=== PATIENT | female | born 1940 | race Asian ===

== ENCOUNTER 2020-03-12 09:55 | Inpatient (IN) | payer MEDICAID, SELFPAY ==
[~2020-03-12] VITALS: Ht 149.9 cm; Wt 49.9 kg
--- NOTE | 2020-03-12 10:02 | NUR ---
Patient to ER bed 03 to gown for evaluation. Side rails up.
[2020-03-12 10:03] VITALS: BP_SYST 156
--- NOTE | 2020-03-12 10:08 | NUR ---
JOSE Damon at bedside examining patient.
--- NOTE | 2020-03-12 10:10 | NUR ---
pt arrives via ACLS d/t increasing abd pain 6/10, sharp, and N/v. Pt has hx of colon CA, a colostomy bag is present. engine monitor placed.
[2020-03-12] MEDS ORDERED: ONDANSETRON HCL 4 MG/2 ML VIAL IVP ONE (10:15)
[2020-03-12] MEDS ORDERED: MORPHINE 4 MG/ML INJ. SYRINGE IVP ONE (10:15)
[2020-03-12] MEDS ORDERED: NS 500 ML IV ONE (10:15)
--- NOTE | 2020-03-12 10:25 | NUR ---
medicateds the pt w/ Zofran, Morphine, and NS per MD order.
--- NOTE | 2020-03-12 10:29 | NUR ---
Patient transported to radiology via gurney, accompanied by staff.
--- NOTE | 2020-03-12 10:43 | NUR ---
pt returned from CT scan
[2020-03-12 10:50] LABS: BASOPHILS % (AUTO) 0.3 % (0.0-2.0); EOSINOPHILS # (AUTO) 0.2 K/uL (0.0-0.4); EOSINOPHILS % (AUTO) 5.2 % (0.0-4.0); HEMATOCRIT 34.2 % (36-48); HEMOGLOBIN 11.1 g/dL (12.0-16.0); LYMPHOCYTES # (AUTO) 0.4 K/uL (1.0-5.5); LYMPHOCYTES % (AUTO) 13.3 % (20.5-51.5); MEAN CORPUSCULAR HEMOGLOBIN 26 pg (27-31); MEAN CORPUSCULAR HGB CONC 33 % (32-36); MEAN CORPUSCULAR VOLUME 79 fL (79.0-98.0); MONOCYTES # (AUTO) 0.7 K/uL (0.0-1.0); MONOCYTES % (AUTO) 25.6 % (1.7-9.3); NEUTROPHILS # (AUTO) 1.6 K/uL (1.8-7.7); NEUTROPHILS % (AUTO) 55.6 % (40.0-70.0); PLATELET COUNT (AUTO) 237 K/uL (130-430); RED BLOOD CELL COUNT(AUTO) 4.35 MIL/uL (4.2-6.2); RED CELL DISTRIBUTION WIDTH 16.6 % (9.0-15.0); WHITE BLOOD COUNT (AUTO) 2.9 K/uL (4.8-10.8)
[2020-03-12 11:01] LABS: PROTHROMBIN TIME 10.1 SECS (9.5-12.5)
[2020-03-12 11:02] LABS: ANION GAP 13 (5-15); CALCIUM 9.5 mg/dL (8.4-11.0); CHLORIDE 99 mmol/L (98-107); CREATININE 0.96 mg/dL (0.55-1.30); GLUCOSE 103 mg/dL (70-99); SODIUM SERUM 140 mmol/L (136-145); UREA NITROGEN, BLOOD 22 mg/dL (8-21)
[2020-03-12 11:15] LABS: ALANINE AMINOTRANSFERASE 21 U/L (12-78); ALBUMIN 3.7 g/dL (3.4-4.8); ASPARTATE AMINOTRANSFERASE 38 U/L (10-37); TOTAL BILIRUBIN 0.7 mg/dL (0.0-1.0)
[2020-03-12 11:20] LABS: BILIRUBIN,URINE 1+ (NEGATIVE); BLOOD, URINE NEGATIVE (NEGATIVE); CLARITY/URINE CLEAR (CLEAR); COLOR,URINE YELLOW (YELLOW); GLUCOSE,URINE NEGATIVE (NEGATIVE); KETONES,URINE NEGATIVE (NEGATIVE); LEUKOCYTE ESTERASE ,URINE NEGATIVE (NEGATIVE); NITRITE, URINE NEGATIVE (NEGATIVE); PROTEIN URINE 1+ (NEGATIVE); UROBILINOGEN,URINE 0.2 (0.2-1.0)
--- NOTE | 2020-03-12 11:20 | NUR ---
16fr NG tube inserted to the left nares.
[2020-03-12 11:21] LABS: POTASSIUM 2.7 mmol/L (3.5-5.1)
[2020-03-12] MEDS ORDERED: KCL 40 mEq in 100 mL (PREMIX) 100 ML IV ONE (11:30)
[2020-03-12 11:43] LABS: PHOSPHORUS 3.3 mg/dL (2.7-4.5)
[2020-03-12] MEDS ORDERED: KCL 20 mEq in 100 mL (PREMIX) 100 ML IV ONE (11:46)
--- NOTE | 2020-03-12 13:06 | NUR ---
600 ml of gastric contain from NG tube
--- NOTE | 2020-03-12 14:20 | NUR ---
Covid swab collected and sent to the lab
[2020-03-12] MEDS ORDERED: NOR10 PO (14:24)
[2020-03-12] MEDS ORDERED: MULT-1117 PO (14:24)
--- NOTE | 2020-03-12 14:24 | NUR ---
Medication reconciliation completed with information provided by pt. Any prior medication reconciliation on file was reviewed and corrected. Pt does not remeber the name of the chemo med
[2020-03-12] MEDS ORDERED: MORPHINE 2 MG/ML INJ. SYRINGE IVP PRN (14:30)
--- NOTE | 2020-03-12 14:50 | NUR ---
Patient will be admitted to care of Dr. Wolff. Admitted to tele unit. Will go to room 107-a. Belongings list completed. Complete and up to date summary report printed. SBAR report to be given at bedside with opportunity for questions. IV is on the LFA 20g patent and infusing well. Bedside report to be given
[2020-03-12 15:40] VITALS: BP_SYST 148
[2020-03-12 16:00] VITALS: BP_SYST 148
[2020-03-12] MEDS ORDERED: CAPE500T PO (17:21)
[2020-03-12] MEDS ORDERED: PROC10TA13 PO (17:21)
[2020-03-12] MEDS ORDERED: ONDA4TAB5 PO (17:21)
[2020-03-12] MEDS: D5/0.45 NS 1,000 ML IV SCH (17:48)
--- NOTE | 2020-03-12 19:30 | NUR ---
CHANGE OF SHIFT: endorsed by nurse Shreya, admission today for bowel obstruction. no distress. call light within reach.
--- NOTE | 2020-03-12 20:30 | NUR ---
NOTES: pt. resting when checked, awake, alert and oriented. IVF infusing via left arm. denies any discomfort. kept NPO. with colostomy intact but no drainage, abdomen slight distended. moves all extremities. maintain bed rest. instructed to call for help, call light at bedside. Addendum: 03/12/20 at 2256 by Jeannette Rosas RN Late entry; 2029 pt. kept NPO, NGT intact and clamped.
[2020-03-12 21:00] VITALS: BP_SYST 130
--- NOTE | 2020-03-12 22:00 | NUR ---
NOTES: pt. dozing on and off. no complaints. asked to turn off lights. call light within reach.
--- NOTE | 2020-03-13 00:35 | NUR ---
NOTES: pt. awakened for VS. IVF continuous. NGT intact. repositioned. no complaints. pt. needs attended. call light within reach.
[2020-03-13 00:38] VITALS: BP_SYST 142
--- NOTE | 2020-03-13 01:00 | NUR ---
NOTES: asked tech to call Dr. Wolff about NGT if he wants it to connect to suction.
--- NOTE | 2020-03-13 01:15 | NUR ---
NOTES: pt. ambulated to restroom, stand by assist. complete linen changed done. NGT checked for patency. kept warm and comfortable.
--- NOTE | 2020-03-13 03:30 | NUR ---
NOTES: pt. sleeping, no complaints.
--- NOTE | 2020-03-13 04:32 | NUR ---
CONSULT REASON FOR CONSULT: BOWEL OBSTRUCTION PERSON I SPOKE WITH: NATHANIEL CONSULTING PHYSICIAN: DR. MOREIRA CONFERENCE SERVICES MANAGER PHYSICIAN: [phone] ORDERING PHYSICIAN: DR. SALAZAR Addendum: 03/13/20 at [address]/ CONFERENCE SERVICES MANAGER PHONE NUMBER: [phone]
--- NOTE | 2020-03-13 05:12 | NUR ---
NOTES: pt. condition unchanged, continue to monitor. Dr. Wolff did not return the call. will call again this am.
--- NOTE | 2020-03-13 06:00 | NUR ---
NOTES: called dr. yeboah back and return the call and ordered NGT to low intermittent suction, drained brownish liquid secretion/colostomy intact. pt. ambulated to restroom, oral care done.
[2020-03-13 06:22] LABS: BASOPHILS % (AUTO) 0.3 % (0.0-2.0); EOSINOPHILS # (AUTO) 0.3 K/uL (0.0-0.4); EOSINOPHILS % (AUTO) 9.5 % (0.0-4.0); HEMOGLOBIN 10.4 g/dL (12.0-16.0); LYMPHOCYTES # (AUTO) 0.5 K/uL (1.0-5.5); LYMPHOCYTES % (AUTO) 13.7 % (20.5-51.5); MEAN CORPUSCULAR HEMOGLOBIN 26 pg (27-31); MEAN CORPUSCULAR HGB CONC 33 % (32-36); MEAN CORPUSCULAR VOLUME 80 fL (79.0-98.0); MONOCYTES # (AUTO) 0.7 K/uL (0.0-1.0); MONOCYTES % (AUTO) 21.1 % (1.7-9.3); NEUTROPHILS # (AUTO) 1.9 K/uL (1.8-7.7); NEUTROPHILS % (AUTO) 55.4 % (40.0-70.0); PLATELET COUNT (AUTO) 222 K/uL (130-430); RED BLOOD CELL COUNT(AUTO) 3.98 MIL/uL (4.2-6.2); RED CELL DISTRIBUTION WIDTH 16.8 % (9.0-15.0); WHITE BLOOD COUNT (AUTO) 3.4 K/uL (4.8-10.8)
--- NOTE | 2020-03-13 06:45 | NUR ---
CLOSING NOTES; pt. resting. IVF patent and NGT to low intermittent suction. no complaints. for further care and assistance. kept NPO. Dr. Sanchez called last night and will see pt. today. call light within reach.
--- NOTE | 2020-03-13 07:00 | NUR ---
OPENING NOTE Assumed care from Jeannette ESTRADA manufacturing shift supervisor at 0700 am. Patient seen awake alert oriented. 0900: Vital signs stable. patient able to make needs known. Will continue care Addendum: 03/13/20 at 1521 by Luann Elias RN 1000: Ng.tube connected to low wall intermittent suction. Patient ambulating to bath without contract administrative assistant. Colostomy bag to left abd without output. Patient voiding well. 1400: GI series done at patient bedside. 1500: Patient ambulated to bathroom, IV patent and infusing. Ng.tube in place and draining brown/greenish output.Vitals stable.
[2020-03-13 07:12] LABS: ALANINE AMINOTRANSFERASE 25 U/L (12-78); ALBUMIN 3.2 g/dL (3.4-4.8); ANION GAP 6 (5-15); ASPARTATE AMINOTRANSFERASE 36 U/L (10-37); CALCIUM 8.4 mg/dL (8.4-11.0); CHLORIDE 101 mmol/L (98-107); CREATININE 0.99 mg/dL (0.55-1.30); GLUCOSE 106 mg/dL (70-99); SODIUM SERUM 137 mmol/L (136-145); TOTAL BILIRUBIN 0.7 mg/dL (0.0-1.0); UREA NITROGEN, BLOOD 16 mg/dL (8-21)
[2020-03-13 07:28] LABS: POTASSIUM 2.8 mmol/L (3.5-5.1)
[2020-03-13 08:58] VITALS: BP_SYST 141
[2020-03-13] MEDS: D5/0.45 NS 1,000 ML IV SCH (10:26)
[2020-03-13 11:47] VITALS: BP_SYST 149
[2020-03-13] MEDS ORDERED: GASTROGRAFIN 120 ML ONE (13:14)
--- NOTE | 2020-03-13 15:45 | NUR ---
CONSULTATION PAGED/CALLED Reason for Consultation: ABD PAIN Person Who was Notified: KOREY Consulting Physician: ASHOK WASHINGTON IS BILLET GRINDER Infrastructure Director Specialty: Ordering Physician: MARIE/ MAYUR WASHINGTON IS BILLET GRINDER
[2020-03-13 16:23] VITALS: BP_SYST 143
--- NOTE | 2020-03-13 18:52 | NUR ---
CLOSING NOTE Patient remain stable during this shift. Please see all nursing note. Addendum: 03/13/20 at 1854 by Luann Elias RN Assumed care from Jeannette ESTRADA manufacturing shift supervisor at 0700 am. Patient seen awake alert oriented. 0900: Vital signs stable. patient able to make needs known. Will continue care Addendum: 03/13/20 at 1521 by Luann Elias RN 1000: Ng.tube connected to low wall intermittent suction. Patient ambulating to bath without pediatric medical assistant. Colostomy bag to left abd without output. Patient voiding well. 1400: GI series done at patient bedside. 1500: Patient ambulated to bathroom, IV patent and infusing. Ng.tube in place and draining brown/greenish output.Vitals stable.
--- NOTE | 2020-03-13 19:30 | NUR ---
OPENING NOTE: RECEIVED SBAR REPORT FROM DAY SHIFT RN. PATIENT IS AWAKE, LAYING IN BED COMFORTABLY, BREATHING UNLABORED AND EVEN ON RA. NGT IS INTACT AND ON LOW INTERMITTENT SUCTION, DRAINING BROWNISH LIQUID, COLOSTOMY IS INTACT, CONTAINS SMALL AMOUNT OF BROWNISH LIQUID. IVF RUNNING AT 50 CC/HR. NO SIGN OF INFILTRATION NOTED. BED IS LOCKED IN LOWEST POSITION, OFFERED TO HAVE BED ALARM ON, PATIENT REFUSED, EDUCATED PATIENT TO USE CALL LIGHT WHEN NEEDS ASSISTANCE. PATIENT VERBALIZED UNDERSTANDING.WILL CONTINUE TO MONITOR.
[2020-03-13 20:00] VITALS: BP_SYST 103
--- NOTE | 2020-03-13 20:29 | NUR ---
SPOKE TO DR. SALAZAR: NOTIFIED HIM OF POTASSIUM LEVEL OF 2.8. NEW ORDERS RECEIVED.
[2020-03-13] MEDS ORDERED: POTASSIUM CHLORIDE 40 MEQ in NS 250 ML IV ONE (20:30)
[2020-03-13] MEDS ORDERED: KCL 20 mEq in 100 mL (PREMIX) 100 ML IV ONE (20:30)
--- NOTE | 2020-03-13 20:40 | NUR ---
HIGH ALERT NOTE: Called Dr. SALAZAR back at [phone] identified within the medical roster to verify physician authenticity OF POTASSIUM RIDER ORDER.
--- NOTE | 2020-03-13 21:22 | NUR ---
POTASSIUM RIDER 20 MEQ STARTED AT 50 ML/HR ORDERED, BUT PATIENT C/O BURNING AT THE SITE. RATE REDUCED TO 30 ML/HR AND TOLERATED BY PATIENT.
[2020-03-13] MEDS: KCL 20 mEq in 100 mL (PREMIX) 100 ML IV SCH ×2 (21:29→23:28)
--- NOTE | 2020-03-13 22:29 | NUR ---
POTASSIUM RIDER: POTASSIUM RIDER 20 MEQ STARTED AT 50 ML/HR ORDERED, BUT PATIENT C/O BURNING AT THE SITE. RATE REDUCED TO 40 ML/HR AND TOLERATED BY PATIENT. WILL CONTINUE PATIENT FOR ANY CHANGES.
[2020-03-14] VITALS: BP_SYST 143
[2020-03-14] MEDS: KCL 20 mEq in 100 mL (PREMIX) 100 ML IV SCH (02:42)
--- NOTE | 2020-03-14 02:42 | NUR ---
POTASSIUM RIDER: POTASSIUM RIDER 20 MEQ STARTED AT 50 ML/HR ORDERED. PATIENT C/O BURNING AT THE SITE, RATE REDUCED TO 40 ML/HR AND TOLERATED BY PATIENT. EMPTIED CANISTER, NEW CANISTER PLACED. NO S/S RESPIRATORY DISTRESS NOTED AT THIS TIME. SAFETY AND FALL PRECAUTIONS ARE IN PLACE, CALL LIGHT IS WITHIN PATIENT REACH. WILL CONTINUE TO MONITOR.
[2020-03-14 04:00] VITALS: BP_SYST 140
--- NOTE | 2020-03-14 04:15 | NUR ---
RN ROUNDS: PATIENT IS SLEEPING, BREATHING EVEN AND UNLABORED. IVF RUNNING ORDERED RATE. NO S/S ACUTE DISTRESS NOTED AT THIS TIME. NG SUCTION ON LOW INTERMITTENT. CANISTER CONTAINS BROWNISH DRAINAGE. BED LOCKED IN LOWEST POSITION, CALL LIGHT IS WITH PATIENT. WILL MONITOR PATIENT FOR ANY CHANGES.
--- NOTE | 2020-03-14 06:41 | NUR ---
CLOSING NOTE: PATIENT IS RESTING COMFORTABLY, K-RIDER AND IVF RUNNING ORDERED RATE. NO SIGNS OF INFILTRATION. RESPIRATION IS EVEN AND UNLABORED. NO S/S ACUTE DISTRESS NOTED AT THIS TIME. BED LOCKED IN LOWEST POSITION, CALL LIGHT WITHIN PATIENT REACH. SAFETY AND FALL PRECAUTIONS MAINTAINED. WILL ENDORSE PATIENT CARE TO DAY SHIFT RN.
[2020-03-14] MEDS: D5/0.45 NS 1,000 ML IV SCH (06:58)
--- NOTE | 2020-03-14 07:00 | NUR ---
OPENING NOTE Assumed care from Tigist ESTRADA production supervisor off shift at 0700 am. Patient alert awake oriented. Ng-tube to LIS. Colostomy bag intact. 0900: Patient vital signs stable. Patient denies trouble breathing or chest pain at this time. Will continue care. Addendum: 03/14/20 at 1655 by Luann Elias RN 1100: Patient electrolytes improved. K 3.7. Patient ambulating. IV patent and infusing. 1300: Patient vitals remain stable at this time. 1500: No major changes noted. Will continue to monitor patient closely 1630: Patient vital signs WNL. GI doctor rounded and discussed plan to start clear liquid on 03/15 if patient Ng output minimizes.Will endorse to oncoming team
--- NOTE | 2020-03-14 07:10 | NUR ---
COLOSTOMY CARE: COLOSTOMY CARE PROVIDED. OLD COLOSTOMY BAG WAS CHANGED. SITE WAS CLEANSED WITH WARM TAP WATER AND PAT DRIED PRIOR TO APPLYING A NEW BAG. STOMA NOTED TO BE PINKISH. PT TOLERATED COLOSTOMY CARE WELL. WILL ENDORSE TO DAY SHIFT NURSE.
[2020-03-14 07:34] LABS: BASOPHILS % (AUTO) 0.4 % (0.0-2.0); EOSINOPHILS # (AUTO) 0.2 K/uL (0.0-0.4); EOSINOPHILS % (AUTO) 3.2 % (0.0-4.0); HEMATOCRIT 33.4 % (36-48); HEMOGLOBIN 10.8 g/dL (12.0-16.0); LYMPHOCYTES # (AUTO) 0.5 K/uL (1.0-5.5); LYMPHOCYTES % (AUTO) 7.4 % (20.5-51.5); MEAN CORPUSCULAR HEMOGLOBIN 26 pg (27-31); MEAN CORPUSCULAR HGB CONC 32 % (32-36); MEAN CORPUSCULAR VOLUME 80 fL (79.0-98.0); MONOCYTES % (AUTO) 15.3 % (1.7-9.3); NEUTROPHILS # (AUTO) 4.7 K/uL (1.8-7.7); NEUTROPHILS % (AUTO) 73.7 % (40.0-70.0); PLATELET COUNT (AUTO) 240 K/uL (130-430); RED BLOOD CELL COUNT(AUTO) 4.17 MIL/uL (4.2-6.2); RED CELL DISTRIBUTION WIDTH 17.5 % (9.0-15.0); WHITE BLOOD COUNT (AUTO) 6.4 K/uL (4.8-10.8)
[2020-03-14 07:45] LABS: ANION GAP 6 (5-15); CALCIUM 8.8 mg/dL (8.4-11.0); CHLORIDE 105 mmol/L (98-107); CREATININE 0.82 mg/dL (0.55-1.30); GLUCOSE 107 mg/dL (70-99); POTASSIUM 3.7 mmol/L (3.5-5.1); SODIUM SERUM 145 mmol/L (136-145); UREA NITROGEN, BLOOD 13 mg/dL (8-21)
[2020-03-14 07:49] VITALS: BP_SYST 140
[2020-03-14 11:28] VITALS: BP_SYST 145
[2020-03-14 15:43] VITALS: BP_SYST 119
--- NOTE | 2020-03-14 17:45 | NUR ---
CLOSING NOTE Patient remain stable during this shift. GI consulted 03/14. Electrolyte improved. Vitals stable. Patient ambulating. Ng-tube to LIS. Colostomy intact with minimal output. Good urine output. Please see all nursing shift notes. Addendum: 03/14/20 at 1750 by Luann Elias RN Assumed care from Tigist ESTRADA shift superintendent caustic cresylate at 0700 am. Patient alert awake oriented. Ng-tube to LIS. Colostomy bag intact. 0900: Patient vital signs stable. Patient denies trouble breathing or chest pain at this time. Will continue care. Addendum: 03/14/20 at 1655 by Luann Elias RN 1100: Patient electrolytes improved. K 3.7. Patient ambulating. IV patent and infusing. 1300: Patient vitals remain stable at this time. 1500: No major changes noted. Will continue to monitor patient closely 1630: Patient vital signs WNL. GI doctor rounded and discussed plan to start clear liquid on 03/15 if patient Ng output minimizes.Will endorse to oncoming team
--- NOTE | 2020-03-14 19:20 | NUR ---
OPENING NOTE: RECEIVED SBAR REPORT FROM DAY SHIFT RN. PATIENT IS AWAKE, LAYING IN BED COMFORTABLY, BREATHING UNLABORED AND EVEN ON RA. NGT IS INTACT AND ON LOW INTERMITTENT SUCTION, DRAINING BROWNISH LIQUID, COLOSTOMY IS INTACT, CONTAINS SMALL AMOUNT OF BROWNISH LIQUID STOOL. IVF RUNNING AT 50 CC/HR. NO SIGN OF INFILTRATION NOTED. BED IS LOCKED IN LOWEST POSITION, OFFERED TO HAVE BED ALARM ON, PATIENT REFUSED, EDUCATED PATIENT TO USE CALL LIGHT WHEN NEEDS ASSISTANCE. PATIENT VERBALIZED UNDERSTANDING.WILL CONTINUE TO MONITOR.
[2020-03-14 20:00] VITALS: BP_SYST 152
--- NOTE | 2020-03-14 22:00 | NUR ---
COLOSTOMY CARE: COLOSTOMY BAG EMPTIED AND CLEANED UP. STOMA NOTED TO BE PINKISH. PT TOLERATED COLOSTOMY CARE WELL.
--- NOTE | 2020-03-15 | NUR ---
RN NOTE: PATIENT IS SLEEPING, BREATHING UNLABORED AND EVEN ON RA. NGT IS INTACT AND ON LOW INTERMITTENT SUCTION, CANISTER CONTAINS BROWNISH LIQUID, COLOSTOMY IS INTACT, CONTAINS SMALL AMOUNT OF BROWNISH LIQUID STOOL. IVF RUNNING AT 50 CC/HR. NO SIGN OF INFILTRATION NOTED. BED IS LOCKED IN LOWEST POSITION. WILL CONTINUE TO MONITOR.
[2020-03-15 00:10] VITALS: BP_SYST 154
--- NOTE | 2020-03-15 02:00 | NUR ---
RN NOTE: PATIENT IS SLEEPING. BREATHING UNLABORED AND EVEN ON RA. NGT IS INTACT AND ON LOW INTERMITTENT SUCTION, SUCTIONING BROWNISH LIQUID, COLOSTOMY IS INTACT, CONTAINS SMALL AMOUNT OF BROWNISH LIQUID STOOL. IVF RUNNING AT 50 CC/HR. NO SIGN OF INFILTRATION NOTED. BED IS LOCKED IN LOWEST POSITION, CALL LIGHT IS WITH PATIENT. WILL CONTINUE TO MONITOR.
--- NOTE | 2020-03-15 04:10 | NUR ---
RN NOTE: PATIENT IS AWAKE, REQUESTING BED BATH. NO S/S ACUTE DISTRESS NOTED AT THIS TIME. IVF RUNNING ORDERED RATE. NGT INTACT, COLOSTOMY IS INTACT, CONTAINING SMALL AMOUNT OF BROWNISH LIQUID. BED LOCKED AND IS IN LOWEST POSITION, CALL LIGHT IS WITH PATIENT. WILL CONTINUE TO MONITOR.
[2020-03-15] MEDS: D5/0.45 NS 1,000 ML IV SCH (06:41)
--- NOTE | 2020-03-15 06:47 | NUR ---
CLOSING NOTE: PATIENT IS RESTING COMFORTABLY, IV SITE SWOLLEN. ANGIOCATH WAS REMOVED INTACT AND PRESSURE DRESSING APPLIED TO THE SITE. NEW IV LINE RESTARTED ON RIGHT HAND WRIST. FLUSH WELL. RESPIRATION IS EVEN AND UNLABORED. NO S/S ACUTE DISTRESS NOTED AT THIS TIME. BED LOCKED IN LOWEST POSITION, CALL LIGHT WITHIN PATIENT REACH. SAFETY AND FALL PRECAUTIONS MAINTAINED. WILL ENDORSE PATIENT CARE TO DAY SHIFT RN.
--- NOTE | 2020-03-15 07:35 | NUR ---
AM ROUNDS: PATIENT AWAKE DURING ROUNDS. BEDSIDE REPORT RECEIVED FROM NIGHT NURSE CHILANGO/MARICRUZ. WITH LEFT NARES NG TUBE CONNECTED TO LIS,WITH COLOSTOMY AT LEFT QUADRANT AREA,DRAINING TO LIGHT BROWN SECRETIONS.CALL LIGHT WITH IN REACH. BED LOCKED AT LOWEST POSITION. NO ACUTE DISTRESS.
[2020-03-15 08:57] VITALS: BP_SYST 145
--- NOTE | 2020-03-15 09:11 | NUR ---
SURGEON ROUNDS: DR MOREIRA IN THE ROOM AND SPOKE TO PATIENT ,UPDATES GIVEN AND INTERPRETED IN TAGALOG ,UNDERSTANDS TEACHINGS GIVEN. WITH ORDERS FOR X-RAY ABDOMEN 2 VIEWS. PER SCHOOL PSYCHOLOGY SPECIALIST ANA,UPRIGHT TAKEN THIS MORNING,NEED ONLY 1 VIEW.
--- NOTE | 2020-03-15 12:09 | NUR ---
X-RAY ABDOMEN RESULTS: SPOKE WITH DR Halima MOREIRA RELAYED X-RAY ABDOMEN RESULTS AND WITH ORDERS REPEAT X-RAY ABDOMEN 2 VIEWS IN AM.
[2020-03-15 12:34] VITALS: BP_SYST 144
--- NOTE | 2020-03-15 13:56 | NUR ---
Dietitian Recommendations *Continue NPO as ordered. *Recommend: diet advancement (Clear liquid diet) within 24 hrs OR... *Recommend: initiate nutrition support if PO is not feasible. (PPN) Please see Nutritional Assessment for details. TAPAN LOW
--- NOTE | 2020-03-15 14:35 | NUR ---
RN ROUNDS: RESTING. NO PROBLEM.
[2020-03-15 15:51] VITALS: BP_SYST 141
--- NOTE | 2020-03-15 16:00 | NUR ---
BSC: TO BSC ,VOIDED.
--- NOTE | 2020-03-15 18:37 | NUR ---
CLOSING NOTES: PATIENT SLEEPING DURING ROUNDS. LEFT NARES NG TUBE TO LIS,DRAINING TO LARGE AMOUNT OF BROWNISH COLOR. LEFT QUADRANT COLOSTOMY INTACT.MINIMAL AMOUNT OF GREENISH COLOR LOOSE STOOLS.IV FLUIDS RUNNING AT RIGHT WRIST INTACT. CALL LIGHT WITH IN REACH. BED LOCKED AT LOWEST POSITION.NO DISTRESS.
--- NOTE | 2020-03-15 19:25 | NUR ---
Opening Note Received patient resting in bed, awake, AOx4, no distress and nonlabored breathing on room air and presently denies pain. IVF infusing via IV to Rt wrist. She has NGT to left nares and it is on LIS and canister has fluid at 900ml. Bed is locked in lowest position, and bed alarm on. Bedside commode is next to bed. She was instructed on use of call light and verbalized understanding. Reviewed plan of care and updated board.
[2020-03-15 20:00] VITALS: BP_SYST 143
--- NOTE | 2020-03-15 22:31 | NUR ---
rounds Patient resting w/eyes closed and momentarily awoke. No needs at this time and call light is w/in reach.
[2020-03-16] MEDS: D5/0.45 NS 1,000 ML IV SCH ×2 (00:06→23:10)
--- NOTE | 2020-03-16 00:06 | NUR ---
V/S, IVF V/S taken and stable, denies pain. Hung new bag of IVF D51/2 NS and infusing as ordered at 50 ml/hr, tolerating, no infiltration noted.
[2020-03-16 00:10] VITALS: BP_SYST 134
--- NOTE | 2020-03-16 02:01 | NUR ---
rounds, sleeping Patient is resting w/ eyes closed, non labored breathing. IVF infusing well. NGT is connected to LIS. Safety precautions in place and call light w/in reach.
--- NOTE | 2020-03-16 05:10 | NUR ---
lab draw entry level lab technician in for blood draw, patient tolerated.
[2020-03-16 06:33] LABS: BASOPHILS % (AUTO) 0.7 % (0.0-2.0); EOSINOPHILS # (AUTO) 0.4 K/uL (0.0-0.4); EOSINOPHILS % (AUTO) 6.4 % (0.0-4.0); HEMATOCRIT 31.4 % (36-48); HEMOGLOBIN 10.2 g/dL (12.0-16.0); LYMPHOCYTES # (AUTO) 0.5 K/uL (1.0-5.5); LYMPHOCYTES % (AUTO) 8.3 % (20.5-51.5); MEAN CORPUSCULAR HEMOGLOBIN 26 pg (27-31); MEAN CORPUSCULAR HGB CONC 32 % (32-36); MEAN CORPUSCULAR VOLUME 81 fL (79.0-98.0); MONOCYTES # (AUTO) 0.8 K/uL (0.0-1.0); MONOCYTES % (AUTO) 14.8 % (1.7-9.3); NEUTROPHILS # (AUTO) 3.8 K/uL (1.8-7.7); NEUTROPHILS % (AUTO) 69.8 % (40.0-70.0); PLATELET COUNT (AUTO) 228 K/uL (130-430); RED BLOOD CELL COUNT(AUTO) 3.89 MIL/uL (4.2-6.2); RED CELL DISTRIBUTION WIDTH 17.9 % (9.0-15.0); WHITE BLOOD COUNT (AUTO) 5.5 K/uL (4.8-10.8)
[2020-03-16 07:28] LABS: ANION GAP 5 (5-15); CHLORIDE 105 mmol/L (98-107); CREATININE 0.66 mg/dL (0.55-1.30); GLUCOSE 103 mg/dL (70-99); SODIUM SERUM 146 mmol/L (136-145); UREA NITROGEN, BLOOD 12 mg/dL (8-21)
[2020-03-16 07:51] LABS: POTASSIUM 2.5 mmol/L (3.5-5.1)
--- NOTE | 2020-03-16 08:00 | NUR ---
AM ROUNDS: PATIENT IN BED.IV FLUIDS RUNNING AT 50CC/H AT RIGHT WRIST INTACT. LEFT NARES NG TUBE CONNECTED TO LIS,BROWN COLOR DISCHARGES. LEFT QUADRANT AREA COLOSTOMY BAG INTACT. CALL LIGHT WITH IN REACH, BED LOCKED AT LOWEST POSITION. NO DISTRESS.
[2020-03-16 08:10] VITALS: BP_SYST 150
--- NOTE | 2020-03-16 08:58 | NUR ---
HIGH ALERT NOTE: Called Dr. Wolff back at [phone] identified within the medical roster to verify physician authenticity.
--- NOTE | 2020-03-16 08:59 | NUR ---
New Order: k-rider 80meq iv pb x1 and do add on magnesium level by Dr Wolff. High alert medications noted.
[2020-03-16] MEDS: POTASSIUM CHLORIDE 40 MEQ in NS 250 ML IV SCH ×2 (10:15→15:02)
--- NOTE | 2020-03-16 10:20 | NUR ---
K-rider 40meq ivpb: Started K-rider 40meq in 250ml saline first bag given as ordered. With no problem.
--- NOTE | 2020-03-16 11:45 | NUR ---
RN ROUNDS: PATIENT LYING IN BED COMFORTABLY. K-RIDER RUNNING WELL. NO ACUTE DISTRESS.
[2020-03-16 11:52] VITALS: BP_SYST 121
[2020-03-16 11:56] VITALS: BP_SYST 138
--- NOTE | 2020-03-16 13:20 | NUR ---
RN ROUNDS: STABLE. NO DISTRESS.
--- NOTE | 2020-03-16 14:30 | NUR ---
K-RIDER #2: SECOND BAG OF K-RIDER 40MEQ IVPB GIVEN ORDERED. ON GOING ,NO PROBLEM.
--- NOTE | 2020-03-16 16:10 | NUR ---
RN ROUNDS: RESTING. NOT ANY DISTRESS.
[2020-03-16 16:28] VITALS: BP_SYST 143
--- NOTE | 2020-03-16 17:15 | NUR ---
MD ROUNDS: DR SALAZAR IN PATIENT'S ROOM. NO NEW ORDERS MADE.
--- NOTE | 2020-03-16 18:12 | NUR ---
CLOSING NOTES: PATIENT IN BED.K-RIDER RUNNING WELL. NG TUBE AT LEFT NARES TO LIS,LARGE AMOUNT OF LIGHT BROWN GASTRIC SECRETIONS,MEASURED OUTPUT AND RECORDED.EMPTIED COLOSTOMY BAG AND RECORDED WELL. CALL LIGHT WITH IN REACH. BED LOCKED AT LOWEST POSITION.CONDITION GUARDED.
--- NOTE | 2020-03-16 19:30 | NUR ---
Opening Note Received patient resting in bed, awake, AOx4, no distress and nonlabored breathing on room air and presently denies pain or nausea. IVF and K-rider infusing via IV to Rt wrist and she is tolerating. She has NGT to left nares and it is on LIS. Bed is locked in lowest position, and patient refused bed alarm on and adds that she will call the light for help. She demonstrates use of call light and has steady gait. Bedside commode is next to bed. She was instructed on use of call light and verbalized understanding. Reviewed plan of care and updated board.
[2020-03-16 20:00] VITALS: BP_SYST 143
--- NOTE | 2020-03-16 22:45 | NUR ---
k-rider complete K-rider is complete, patient tolerated.
--- NOTE | 2020-03-16 23:10 | NUR ---
IVF Hung new bag of IVF D51/2 NS and infusing as ordered at 50 ml/hr also replaced primary line tubing and dated. Infusing well and tolerating, no s/sx of infiltration.
[2020-03-17] VITALS: BP_SYST 140
--- NOTE | 2020-03-17 00:10 | NUR ---
Rounds Patient resting, no s/sx of distress. VSS. IVF infusing well and NGT on LIS. Call light w/ in reach.
--- NOTE | 2020-03-17 02:32 | NUR ---
Resting Patient is resting w/ eyes closed. Symmetrical rise and fall of chest, non labored breathing noted. Safety precautions maintained.
--- NOTE | 2020-03-17 04:10 | NUR ---
rounds, awake Patient is resting in bed, she is awake and reports she is ok and has no further needs. No s/sx of distress, non labored breathing noted. Safety precautions maintained.
--- NOTE | 2020-03-17 07:04 | NUR ---
Closing note Patient is awake resting in comfortable position, no s/sx of distress and non labored breathing. IVF infusing well. Emptied 10 ml of loose brwon contents from colostomy and measured 450 ml output from NGT. Safety and aspiration precautions maintained. Needs met throughout shift, will endorse care to day shift nurse.
[2020-03-17 08:00] VITALS: BP_SYST 140
--- NOTE | 2020-03-17 08:00 | NUR ---
Opening Notes Patient is awake, alert and oriented x4. No resp distress noted. Breathing is even and unlabored. Patient denies any pain at this time. Patient remains NPO at this time. Denies any NVD, cough or abnormal bleeding. IV site on right wrist, 22 gauge intact, flushing well at this time. No infiltration or irritation noted. D5 1/2 NS @ 50 cc/hr, infusing well at this time. Patient is ambulatory, steady gait. Patient is noted with an NGTUBE, on low intermittent suction. Will monitor output throughout shift. All needs met at this time. Safety and fall precautions in place. Call light within reach. Bed in lowest position, locked. Will continue to monitor.
--- NOTE | 2020-03-17 10:15 | NUR ---
Notes Patient is awake, alert and oriented x4. No resp distress noted. Breathing is even and unlabored. Patient remains on low intermittent suction for NGTUBE. Remains NPO at this time. Patient denies any pain, NVD at this time. Nurse assisted patient to use the restroom, steady gait. All needs met at this time, Will continue to monitor.
--- NOTE | 2020-03-17 12:35 | NUR ---
Notes Patient remains NPO at this time. No resp distress noted. Breathing is even and unlabored. Denies any pain at this time. No needs at this time. Will continue to monitor.
[2020-03-17 13:01] VITALS: BP_SYST 148
--- NOTE | 2020-03-17 14:00 | NUR ---
Notes Patient is sleeping in bed at this time. No resp distress noted. Breathing is even and unlabored. Denies any pain at this time. Pt remains on low intermittent suction, still draining at this time. No needs at this time. Will continue to monitor.
--- NOTE | 2020-03-17 15:20 | NUR ---
Dietitian Note Pt has been NPO x 5 days, since admission on 03/12. RD reviewed EMR. Per bed huddle discussion earlier, pt s/ SBO d/t air-filled colon. KUB done and air has since been released. Pt now has hernia developing around the colostomy bag. RD s/w RN Luisana who reported that pt continues w/ high NGT output. And pt is a/w advancement of diet once NGT output volume is less. RD discussed possible initiation of nutrition support. RN to relay message to Dr. Wolff. RD to follow per nutrition care standards. DEVANTE, RD
[2020-03-17 16:00] VITALS: BP_SYST 160
[2020-03-17] MEDS: D5/0.45 NS 1,000 ML IV SCH (17:33)
--- NOTE | 2020-03-17 18:00 | NUR ---
Patient is being seen and examined by DR. MOREIRA
--- NOTE | 2020-03-17 18:19 | NUR ---
CLAMP NGTUBE/CLEAR LIQUID DIET Obtained new orders to clamp NGTUBE and place patient on clear liquid diet. Noted and carried out.
--- NOTE | 2020-03-17 18:35 | NUR ---
Closing Notes Patient is awake, alert and oriented x4. No resp distress noted. Breathing is even and unlabored. Denies any pain at this time. NGTube in left nare, clamped at this time. Switched out canisters. Drainage is noted a clear brown color. IV site on left wrist, 22 gauge intact, D5 1/2 NS @ 50 cc/hr infusing well at this time. Emptied out patients colostomy bag, 10 cc loose stool emptied out. Patient is now on an CLEAR LIQUID DIET. All needs met at this time. Safety and fall precautions in place. Call light within reach. Bed in lowest position, locked. Will continue to monitor.
--- NOTE | 2020-03-17 19:35 | NUR ---
Opening Note Received patient resting in bed, awake, AOx4, no distress and nonlabored breathing on room air and presently denies pain or nausea. IVF infusing via IV to Rt wrist. She has NGT to left nares which is clamped. She requested apple juice, it was provided and will f/u on tolerance. Bed is locked in lowest position, and patient refused bed alarm on and adds that she will call the light for help. She demonstrates use of call light and has steady gait. Bedside commode is next to bed. She was instructed on use of call light and verbalized understanding. Reviewed plan of care and updated board.
[2020-03-17 20:00] VITALS: BP_SYST 130
--- NOTE | 2020-03-17 20:33 | NUR ---
apple juice Patient drank 1 cup of apple juice and reports she feels good, no symptoms, tolerated.
--- NOTE | 2020-03-17 22:20 | NUR ---
Resting Patient is resting w/ eyes closed easy to arouse. She is comfortable and reports no pain or nause. She voided in BSC.
[2020-03-18 00:35] VITALS: BP_SYST 139
--- NOTE | 2020-03-18 00:35 | NUR ---
V/S, rounds V/S taken and stable, denies pain. IVF infusing well, will continue to monitor. Call light w/in reach.
--- NOTE | 2020-03-18 02:18 | NUR ---
OOB Patient OOB for use of BSC, bed linen was changed. She returned to bed, call light w/in reach.
--- NOTE | 2020-03-18 04:07 | NUR ---
c/o abdominal pain Patient awake and called to report severe abdominal pain, presently no nausea. Morphine 2mg given for severe pain, will continue to monitor.
--- NOTE | 2020-03-18 04:31 | NUR ---
Resting Patient resting w/ eyes closed. momentarily awakened and she reports no pain. She was repositioned, pulled up in bed
--- NOTE | 2020-03-18 07:05 | NUR ---
Closing note Patient is awake resting in comfortable position, no s/sx of distress and non labored breathing. IVF infusing well. Emptied 5 ml of loose brown contents from colostomy. Presently denies pain or nausea. Safety and aspiration precautions maintained. Needs met throughout shift, will endorse care to day shift nurse.
[2020-03-18 08:00] VITALS: BP_SYST 152
--- NOTE | 2020-03-18 08:00 | NUR ---
Opening Notes Patient is awake, alert and oriented x4. No resp distress noted. Breathing is even and unlabored. Patient denies any pain at this time. Patient remains NPO at this time. Denies any NVD, cough or abnormal bleeding. IV site on right wrist, 22 gauge intact, flushing well at this time. No infiltration or irritation noted. D5 1/2 NS @ 50 cc/hr, infusing well at this time. Patient is ambulatory, steady gait. Patient is noted with an NGTUBE, clamped at this time. Patient remains on a clear liquid diet, no nausea reported. All needs met at this time. Safety and fall precautions in place. Call light within reach. Bed in lowest position, locked. Will continue to monitor.
[2020-03-18] MEDS: D5/0.45 NS 1,000 ML IV SCH (09:41)
--- NOTE | 2020-03-18 10:15 | NUR ---
Notes Patient is sleeping in bed at this time. No resp distress noted. Breathing is even and unlabored. No signs of pain at this time. Will continue to monitor.
--- NOTE | 2020-03-18 12:15 | NUR ---
Notes Patient is asleep in bed at this time. No resp distress noted. Breathing is even and unlabored. Patient is c/o discomfort at NG TUBE site. Asking if we can possibly remove the NGTUBE, as in its hard for her to eat with it on. Paged Dr. Sanchez. Awaiting callback. Will continue to monitor.
[2020-03-18 12:21] VITALS: BP_SYST 148
--- NOTE | 2020-03-18 13:30 | NUR ---
DISCONTINUED NG TUBE DC NG TUBE on left nare. Patient tolerated NG TUBE removal well. Denies any pain. No signs of redness, bleeding or trauma to left nare. Patient denies any nausea at this time. Will continue to monitor.
--- NOTE | 2020-03-18 14:27 | NUR ---
Notes Patient is sitting up in bed, watching TV. No resp distress noted. Breathing is even and unlabored. No c/o pain at nares site. No needs at this time. Will continue to monitor.
[2020-03-18 15:07] LABS: BASOPHILS % (AUTO) 0.4 % (0.0-2.0); EOSINOPHILS # (AUTO) 0.2 K/uL (0.0-0.4); EOSINOPHILS % (AUTO) 2.5 % (0.0-4.0); HEMATOCRIT 35.7 % (36-48); HEMOGLOBIN 11.4 g/dL (12.0-16.0); LYMPHOCYTES # (AUTO) 0.4 K/uL (1.0-5.5); MEAN CORPUSCULAR HEMOGLOBIN 26 pg (27-31); MEAN CORPUSCULAR HGB CONC 32 % (32-36); MEAN CORPUSCULAR VOLUME 80 fL (79.0-98.0); MONOCYTES % (AUTO) 12.5 % (1.7-9.3); NEUTROPHILS # (AUTO) 6.4 K/uL (1.8-7.7); NEUTROPHILS % (AUTO) 79.6 % (40.0-70.0); PLATELET COUNT (AUTO) 257 K/uL (130-430); RED BLOOD CELL COUNT(AUTO) 4.44 MIL/uL (4.2-6.2); RED CELL DISTRIBUTION WIDTH 16.9 % (9.0-15.0); WHITE BLOOD COUNT (AUTO) 8.1 K/uL (4.8-10.8)
[2020-03-18 16:02] LABS: ANION GAP 9 (5-15); CHLORIDE 103 mmol/L (98-107); CREATININE 0.75 mg/dL (0.55-1.30); GLUCOSE 106 mg/dL (70-99); POTASSIUM 3.2 mmol/L (3.5-5.1); SODIUM SERUM 140 mmol/L (136-145); UREA NITROGEN, BLOOD 11 mg/dL (8-21)
--- NOTE | 2020-03-18 16:20 | NUR ---
Notes Patient is asleep at this time. No resp distress. Will continue to monitor.
[2020-03-18 16:56] VITALS: BP_SYST 140
--- NOTE | 2020-03-18 16:59 | NUR ---
Nutrition F/U RD reviewed pt's current EMR record including diet Hx, physician notes, nursing notes, pertinent labs/meds/procedures, care trends, and care activity. Admission Dx: Bowel Obstruction PMH: SBO, Hx of Colon Cancer Stage IV, Colostomy Status, HTN per MD notes. Current Diet Order/Nutrition Support: Mechanical soft x0 days Subjective Info: RD met w/ pt at bedside this afternoon. Pt reported that she does not care for Ensure Clear ONS as it makes her vomit. Pt stated that she has no appetite, and her throat is in pain. RD offered soups and inquired about food preferences, however, pt was hesitant. NGT was removed today; 5 ml of stool output via colostomy to L lower abd per EMR records. RD encouraged pt to try to eat a little bit of foods at meal times to prevent unintentional wt loss and risk for malnutrition. Pt stated she would try, but does not have an appetite. Pertinent Medications Reviewed Pertinent Labs 03/19/20: labs pending 03/16/20: Na 146 H, K 2.5 L, BG 103 H Height (Feet) 4 feet Height (Inches) 11.00 inches Weight (Pounds) 110 pounds -- new wt per bedscale: 117# 03/18/20 -- possibly skewed d/t linens/bedding Weight (Calculated Kilograms) 49.326499 kilograms Patient Weight 49.895 kg Body Mass Index 22.21 kg/m2 %IBW 116 [place]/Adjusted Body Weight 95# /43 kg Recent Weight Change unknown Weight Status Appropriate Gastrointestinal Symptoms None Last BM Mar 15, 2020 Skin Integrity Comment: Anthony scale: 20; no skin issues noted upon EMR review Current % PO 75% x2 meals today per EMR review Estimated Energy Expenditure (kcals/day) 0411-0894 Kcal/day (25-30 kcal/kg CBW for maintenance) Estimated Protein Required (g/day) 60gm/day (1.2 gm/kg CBW for Geriatric maintenance) Estimated Fluid Required (l/day) 1.3 L/day (25ml/kg CBW for Geriatric maintenance) Problem/Etiology/Signs/Symptoms Inadequate protein-energy intake r/t altered GI function AEB SBO and PO intake meeting <25% of est needs d/t NPO status x 3 days. *possibly improving Expected Outcomes/Goals Monitor appetite and PO intake w/ goal of pt meeting more than 75% of estimated nutritional needs, labs trending WNL, normal GI function, skin integrity/wt maintenance. Dietitian Recommendations * Recommend continuing mechanical soft diet * Recommend snacks BID Follow Up Moderate Risk: F/U in 3-5 days
--- NOTE | 2020-03-18 17:08 | NUR ---
Dietitian Recommendations * Recommend continuing mechanical soft diet * Recommend snacks BID LP, RD Please refer to Nutrition F/U for details.
--- NOTE | 2020-03-18 18:55 | NUR ---
Closing Notes/NEW IV ACCESS/N&V Patient is awake, alert and oriented x4. No resp distress noted. Breathing is even and unlabored. Patient denies any pain at this time. Patient is nauseated, had one episode of vomiting, refused nausea medicine. IV site on right wrist, 22 gaugecame out, leaking. Started new IV access on left forearm, 22 gauge. D5 1/2 NS @ 50 cc/hr, infusing well at this time. Patient is ambulatory, steady gait. Emptied out colostomy bag, noted with 150 cc of loose stool. All needs met at this time. Safety and fall precautions in place. Call light within reach. Bed in lowest position, locked. Will continue to monitor.
--- NOTE | 2020-03-18 19:09 | NUR ---
HIGH ALERT NOTE: Called Dr. Wolff back at [phone] identified within the medical roster to verify physician authenticity. Verified ordered re- k rider 40meq IV
[2020-03-18] MEDS ORDERED: POTASSIUM CHLORIDE 40 MEQ in NS 250 ML IV ONE (19:15)
--- NOTE | 2020-03-18 19:30 | NUR ---
OPENING NOTES RECEIVED SBAR REPORT FROM DAY SHIFT RN. PT RESTING IN BED, ALERT & ORIENTED X4. BREATHING EVEN AND UNLABORED TO ROOM AIR. NO S/S OF SOB OR PAIN NOTED. IV ON LEFT FA 22G, INTACT, NO SIGNS OF INFILTRATION NOTED. LLQ COLOSTOMY BAG INTACT. BED ALARM ON, LOCKED IN LOWEST POSITION. CALL LIGHT WITHIN REACH. SAFETY AND FALL PRECAUTIONS ARE IN PLACE. WILL MONITOR.
[2020-03-18 20:00] VITALS: BP_SYST 151
--- NOTE | 2020-03-18 22:06 | NUR ---
HUNG POTASSIUM CHLORIDE 40MEQ HUNG POTASSIUM CHLORIDE 40MEG. NO SIGNS OF INFILTRATION NOTED. PT TOLERATING WELL. BREATHING EVEN AND UNLABORED TO ROOM AIR. PT DENIES ANY PAIN AT THIS TIME. BED LOCKED IN LOWEST POSITION. SIDE RAILS UP X3. CALL LIGHT WITHIN REACH. SAFETY AND FALL PRECAUTIONS ARE IN PLACE. WILL MONITOR.
[2020-03-19] VITALS: BP_SYST 145
--- NOTE | 2020-03-19 00:15 | NUR ---
RN ROUNDS ASSISTED PT TO BATHROOM, STEADY GAIT NOTED. PT BACK TO BED SAFELY. EMPTIED COLOSTOMY BAG, 150ML OF LOOSE STOOL NOTED. BREATHING EVEN AND UNLABORED TO ROOM AIR. PT DENIES ANY PAIN AT THIS TIME. IVF RUNNING ORDERED RATE. NO SIGNS OF INFILTRATION NOTED. CALL LIGHT WITHIN REACH. SIDE RAILS UP X3. BED ALARM ON, LOCKED IN LOWEST POSITION. SAFETY AND FALL PRECAUTIONS MAINTAINED. WILL CONTINUE TO MONITOR.
--- NOTE | 2020-03-19 02:38 | NUR ---
RN ROUNDS PT SLEEPING. CHEST RISE AND FALL SYMMETRICAL. BREATHING EVEN AND UNLABORED TO ROOM AIR. NO S/S OF ACUTE DISTRESS NOTED. IVF RUNNING ORDERED RATE. PT TOLERATING WELL. CALL LIGHT WITHIN REACH. BED LOCKED IN LOWEST POSITION. SAFETY AND FALL PRECAUTIONS ARE IN PLACE. WILL MONITOR.
[2020-03-19] MEDS: D5/0.45 NS 1,000 ML IV SCH ×2 (04:40→23:21)
--- NOTE | 2020-03-19 06:42 | NUR ---
CLOSING NOTES PT RESTING IN BED. BREATHING EVEN AND UNLABORED TO ROOM AIR. NO S/S OF SOB OR PAIN NOTED. IV ON LEFT FA 22G, INTACT, NO SIGNS OF INFILTRATION NOTED. LLQ COLOSTOMY BAG INTACT. BED ALARM ON, LOCKED IN LOWEST POSITION. CALL LIGHT WITHIN REACH. SAFETY AND FALL PRECAUTIONS ARE IN PLACE. ALL NEEDS ARE MET THROUGHOUT SHIFT. WILL CONTINUE TO MONITOR. .
[2020-03-19 07:30] VITALS: BP_SYST 154
--- NOTE | 2020-03-19 08:00 | NUR ---
OPENING NOTES, RECEIVED PT IN IN BED, PT IS AAOX4, DENIES PAIN, NO SOB, NO RESP DISTRESS, COLOSTOMY HAS WATER YELLOW BROWN DRAINAGE. SAFETY PRECAUTION IN PLACE. CALL LIGHT IN REACH. BED IN LOW POSITION. ENCOURAGED PT TO CALL FOR ASSIST AND PAIN MEDS AND ANY OTHER CONCERNS. WILL CONT TO MONITOR.
[2020-03-19] MEDS: ONDANSETRON HCL 4 MG/2 ML VIAL IVP PRN (08:16)
--- NOTE | 2020-03-19 08:16 | NUR ---
PT GIVEN ZOFRAN PT C/O OF NAUSEA AFTER TAKE A COUPLE OF BITES FROM [facility].
--- NOTE | 2020-03-19 08:58 | NUR ---
DR MOREIRA WAS HERE AND SEEN PT . AND NEW ORDERS GIVEN.
--- NOTE | 2020-03-19 10:10 | NUR ---
PT IN BED, RESTING, NO C/O OF PAIN. NO NAUSEA.
[2020-03-19] MEDS ORDERED: PANTOPRAZOLE SODIUM 40 MG/VIAL (PROTONIX) IVP ONE (10:30)
[2020-03-19] MEDS ORDERED: MILK OF MAGNESIA 30 ML UDC PO PRN (10:30)
[2020-03-19 10:46] LABS: ANION GAP 8 (5-15); CALCIUM 8.6 mg/dL (8.4-11.0); CHLORIDE 104 mmol/L (98-107); GLUCOSE 115 mg/dL (70-99); POTASSIUM 3.6 mmol/L (3.5-5.1); SODIUM SERUM 140 mmol/L (136-145); UREA NITROGEN, BLOOD 12 mg/dL (8-21)
[2020-03-19 10:53] LABS: BASOPHILS % (AUTO) 0.4 % (0.0-2.0); EOSINOPHILS # (AUTO) 0.1 K/uL (0.0-0.4); EOSINOPHILS % (AUTO) 1.7 % (0.0-4.0); HEMOGLOBIN 11.2 g/dL (12.0-16.0); LYMPHOCYTES # (AUTO) 0.4 K/uL (1.0-5.5); LYMPHOCYTES % (AUTO) 7.2 % (20.5-51.5); MEAN CORPUSCULAR HEMOGLOBIN 26 pg (27-31); MEAN CORPUSCULAR HGB CONC 32 % (32-36); MEAN CORPUSCULAR VOLUME 80 fL (79.0-98.0); MONOCYTES # (AUTO) 0.7 K/uL (0.0-1.0); MONOCYTES % (AUTO) 11.8 % (1.7-9.3); NEUTROPHILS # (AUTO) 4.9 K/uL (1.8-7.7); NEUTROPHILS % (AUTO) 78.9 % (40.0-70.0); PLATELET COUNT (AUTO) 262 K/uL (130-430); RED BLOOD CELL COUNT(AUTO) 4.36 MIL/uL (4.2-6.2); RED CELL DISTRIBUTION WIDTH 17.6 % (9.0-15.0); WHITE BLOOD COUNT (AUTO) 6.2 K/uL (4.8-10.8)
[2020-03-19 12:20] VITALS: BP_SYST 153
--- NOTE | 2020-03-19 13:00 | NUR ---
175 CC OF WATERY DRAINAGE FROM COLOSTOMY DRAIN.
[2020-03-19 16:33] VITALS: BP_SYST 145
--- NOTE | 2020-03-19 17:42 | NUR ---
PATIENT REPORTED SHE VOMITED A LITTLE BIT THIS PM.
--- NOTE | 2020-03-19 19:01 | NUR ---
CLOSING NOTES, PT HAS BEEN STABLE THE WHOLE SHIFT, NO C/O PAIN. C/O OF 1 X EMESIS AND SONE NAUSEA. GIVEN ZOFRAN X1. COLOSTOMY OUT PUT IS STILL VERY WATERY, DRAINAGE WAS 175 CC. PT HAS 3X VIEWS ABDOMINAL SERIES. PAGED DR MOREIRA TO MAKE AWARE OF RESULT. WILL ENDORSE TO NIGHT NURSE.
--- NOTE | 2020-03-19 19:30 | NUR ---
OPENING NOTES RECEIVED SBAR REPORT FROM DAY SHIFT RN. PT RESTING IN BED, ALERT & ORIENTED X4. BREATHING EVEN AND UNLABORED TO ROOM AIR. IV ON LEFT FOREARM 22G, INTACT, IVF RUNNING ORDERED RATE. NO SIGNS OF INFILTRATION NOTED. LLQ COLOSTOMY BAG INTACT, SMALL WATERY DRAINAGE NOTED. BED ALARM ON, LOCKED IN LOWEST POSITION. CALL LIGHT WITHIN REACH. SIDE RAILS UP X3. SAFETY AND FALL PRECAUTIONS MAINTAINED. WILL CONTINUE TO MONITOR.
[2020-03-19 20:00] VITALS: BP_SYST 143
--- NOTE | 2020-03-19 20:15 | NUR ---
paged paged doctor shaw for hida scan results
--- NOTE | 2020-03-19 20:20 | NUR ---
SPOKE TO DR. MOREIRA NOTIFIED DR. MOREIRA REGARDING RESULT OF XR ABDOMINAL SERIES. NEW ORDER RECEIVED.
--- NOTE | 2020-03-19 21:15 | NUR ---
RN ROUNDS PT RESTING IN BED. BREATHING EVEN AND UNLABORED TO ROOM AIR. PT DENIES ANY PAIN AT THIS TIME. IVF RUNNING ORDERED RATE. PT TOLERATING WELL. PT IS ON NPO. CALL LIGHT WITHIN REACH. BED LOCKED IN LOWEST POSITION. SAFETY AND FALL PRECAUTIONS ARE IN PLACE. WILL CONTINUE TO MONITOR.
--- NOTE | 2020-03-19 23:21 | NUR ---
HUNG NEW IVF BAG HUNG NEW IVF BAG ORDERED RATE. NO SIGNS OF INFILTRATION NOTED. PT TOLERATING WELL. BREATHING EVEN AND UNLABORED TO ROOM AIR. NO SIGNS OF RESPIRATORY DISTRESS NOTED. CALL LIGHT WITHIN REACH. BED LOCKED IN LOWEST LEVEL. SAFETY AND FALL PRECAUTIONS ARE IN PLACE. WILL CONTINUE TO MONITOR.
[2020-03-20] VITALS: BP_SYST 133
--- NOTE | 2020-03-20 02:42 | NUR ---
RN ROUNDS PT SLEEPING. NO SIGNS OF RESPIRATORY DISTRESS NOTED. IVF RUNNING ORDERED RATE. PT TOLERATING WELL. CALL LIGHT WITHIN REACH. BED LOCKED IN LOWEST POSITION. SAFETY AND FALL PRECAUTIONS MAINTAINED. WILL CONTINUE TO MONITOR.
[2020-03-20] MEDS: MORPHINE 2 MG/ML INJ. SYRINGE IVP PRN ×2 (03:46→15:44)
[2020-03-20] MEDS: ONDANSETRON HCL 4 MG/2 ML VIAL IVP PRN ×2 (03:46→15:43)
--- NOTE | 2020-03-20 03:46 | NUR ---
VOMITING/ABDOMINAL PAIN PT REPORTING ABDOMINAL PAIN AND VOMITING. 50ML AMOUNT OF EMESIS NOTED (EMESIS BAG). ADMINISTERED ZOFRAN AND MORPHINE ORDERED PRN. DISCUSSED MEDICATIONS ACTION AND POTENTIAL SIDE EFFECTS. PT VERBALIZED UNDERSTANDING. CALL LIGHT WITHIN REACH. SIDE RAILS UP X3. BED LOCKED IN LOWEST POSITION. SAFETY AND FALL PRECAUTIONS ARE IN PLACE. WILL CONTINUE TO MONITOR.
--- NOTE | 2020-03-20 06:35 | NUR ---
CLOSING NOTES PT RESTING IN BED. BREATHING EVEN AND UNLABORED TO ROOM AIR. IV ON LEFT FOREARM 22G, INTACT, IVF RUNNING ORDERED RATE. NO SIGNS OF INFILTRATION NOTED. LLQ COLOSTOMY BAG INTACT. BED ALARM ON, LOCKED IN LOWEST POSITION. CALL LIGHT WITHIN REACH. SIDE RAILS UP X3. SAFETY AND FALL PRECAUTIONS MAINTAINED. ALL NEEDS ARE MET THROUGHOUT SHIFT. WILL CONTINUE TO MONITOR UNTIL ENDORSE TO DAY SHIFT RN.
--- NOTE | 2020-03-20 07:25 | NUR ---
AM ROUNDS: PATIENT LYING ON THE BED.AWAKE,ALERT AND ORIENTED X4. IV FLUIDS RUNNING AT LEFT FOREARM INTACT. WITH COLOSTOMY BAG AT LEFT QUADRANT AREA,DRAINING TO MODERATE AMOUNT OF YELLOWISH SECRETIONS. NO NEEDS THIS TIME. NOT IN ANY DISTRESS NOTED THIS TIME.CALL LIGHT WITH IN REACH. BED LOCKED AT LOWEST POSITION.
[2020-03-20 07:55] VITALS: BP_SYST 142
[2020-03-20] MEDS: PANTOPRAZOLE SODIUM 40 MG/VIAL (PROTONIX) IVP SCH (08:37)
--- NOTE | 2020-03-20 10:28 | NUR ---
RN ROUNDS: SLEEPING DURING ROUNDS. STABLE.
--- NOTE | 2020-03-20 12:25 | NUR ---
Surgeon Rounds: Patient seen by Dr. Halima Sanchez in the room. Spoke to patient's sister Lady thru phone and updates given.
--- NOTE | 2020-03-20 12:30 | NUR ---
New Orders: Per Dr. cole Sanchez,with orders put back Ng tube due to vomiting,aspiration precaution.
--- NOTE | 2020-03-20 12:33 | NUR ---
Vomits: Patient vomited to large amount yellowish-greenish secretions just after surgeon left.
[2020-03-20 13:19] VITALS: BP_SYST 153
--- NOTE | 2020-03-20 16:00 | NUR ---
Ng tube insertion: Put patient on high taylor's position,instructions given prior to insertion.Put ng tube mongolian 16 at left nares,connected to low intermittent suction,large amount of greenish secretions in the canister.
--- NOTE | 2020-03-20 18:19 | NUR ---
End of Shift: Patient resting this time. Ng tube at left nares to lis draining a large amount of greenish-light yellow secretions.Iv fluids running well at left forearm intact. Colostomy at left lower quadrant area,yellowish in moderate amount.call light with in reach. Bed locked at lowest position. Not in any distress.
[2020-03-20 18:22] VITALS: BP_SYST 142
[2020-03-20 19:20] VITALS: BP_SYST 134
--- NOTE | 2020-03-20 19:25 | NUR ---
OPENING NOTES Patient is resting, no signs of acute respiratory distress noted, 2L NC. NG tube in place, on suctioning low-intermittent. Colostomy bag in place, no drainage noted, no output at this time. Bedside commode at bedside. IV site patent, dressings c/d/i, IVF running. Call light within reach, bed alarm on, bed at lowest position. Will continue to monitor.
[2020-03-20] MEDS: D5/0.45 NS 1,000 ML IV SCH (21:42)
[2020-03-21] VITALS: BP_SYST 129
--- NOTE | 2020-03-21 00:06 | NUR ---
Patient is resting, no signs of acute respiratory distress noted, HOB elevated slightly. Will continue to monitor.
--- NOTE | 2020-03-21 04:17 | NUR ---
Patient is resting, rise and fall of chest noted. Call light within reach, bed alarm on, bed at lowest position, NG tube in place. will continue to monitor.
--- NOTE | 2020-03-21 06:10 | NUR ---
CLOSING NOTES Patient is resting, no signs of acute respiratory distress noted, 2L NC. NG tube in place, on suctioning low-intermittent, 300 ml out. Colostomy bag in place, no drainage noted, no output at this time. Bedside commode at bedside. IV site patent, dressings c/d/i, IVF running. Call light within reach, bed alarm on, bed at lowest position. All needs met throughout shift. Will endorse care to oncoming shift.
[2020-03-21 06:20] LABS: BASOPHILS % (AUTO) 0.9 % (0.0-2.0); EOSINOPHILS # (AUTO) 0.1 K/uL (0.0-0.4); EOSINOPHILS % (AUTO) 3.3 % (0.0-4.0); HEMATOCRIT 33.2 % (36-48); HEMOGLOBIN 10.8 g/dL (12.0-16.0); LYMPHOCYTES # (AUTO) 0.7 K/uL (1.0-5.5); LYMPHOCYTES % (AUTO) 17.4 % (20.5-51.5); MEAN CORPUSCULAR HEMOGLOBIN 26 pg (27-31); MEAN CORPUSCULAR HGB CONC 33 % (32-36); MEAN CORPUSCULAR VOLUME 80 fL (79.0-98.0); MONOCYTES # (AUTO) 0.7 K/uL (0.0-1.0); MONOCYTES % (AUTO) 17.8 % (1.7-9.3); NEUTROPHILS # (AUTO) 2.6 K/uL (1.8-7.7); NEUTROPHILS % (AUTO) 60.6 % (40.0-70.0); PLATELET COUNT (AUTO) 270 K/uL (130-430); RED BLOOD CELL COUNT(AUTO) 4.16 MIL/uL (4.2-6.2); WHITE BLOOD COUNT (AUTO) 4.2 K/uL (4.8-10.8)
[2020-03-21 08:00] VITALS: BP_SYST 122
[2020-03-21 08:05] LABS: ALANINE AMINOTRANSFERASE 23 U/L (12-78); ALBUMIN 2.8 g/dL (3.4-4.8); ANION GAP 6 (5-15); ASPARTATE AMINOTRANSFERASE 33 U/L (10-37); CALCIUM 8.9 mg/dL (8.4-11.0); CHLORIDE 100 mmol/L (98-107); CREATININE 1.02 mg/dL (0.55-1.30); GLUCOSE 107 mg/dL (70-99); POTASSIUM 3.3 mmol/L (3.5-5.1); SODIUM SERUM 136 mmol/L (136-145); UREA NITROGEN, BLOOD 13 mg/dL (8-21)
[2020-03-21] MEDS: PANTOPRAZOLE SODIUM 40 MG/VIAL (PROTONIX) IVP SCH (09:28)
[2020-03-21 12:00] VITALS: BP_SYST 120
[2020-03-21 17:18] VITALS: BP_SYST 125
[2020-03-21 19:00] VITALS: BP_SYST 138
--- NOTE | 2020-03-21 19:15 | NUR ---
change of shift.pt.presents quiescent affect;calm,resting.pt.presents ng-tube;location:lt.nares;intact;patent connection to low/int suction;i have received the pt.w ng-tube return noted@200ml.pt.presents iv access intact;patent iv fluids infusing.pt.presents diet status;npo;pt.to submit to surgery;03/22/20 per ;ex-lap.to fu w surgery paper-work,test/labs in am;03/22/20.pt.utilizing the bsc.w/in access of the pt.general status stable.respiratory status stable;unlabored@room air.call light/telephone w/in acces of the pt.
[2020-03-21 20:00] VITALS: BP_SYST 138
--- NOTE | 2020-03-21 20:00 | NUR ---
pt.assessed.pt.presents quiescent affect;calm,resting.i have assessed the colostomy intact;patent.iv access intact;patent iv fluids infusing.i have changed the iv fluids bag.bsc inspected clean w/in access of the pt.i have assessed the ng tube intact; patent return extant.i have flushed the ng-tube.pt.assessed for cleanliness.pt.repositioned.no c/o pain,nausea.general status stable.respiratory status stable;unlabored.call light/telephone placed w/in access of the pt.
--- NOTE | 2020-03-21 22:00 | NUR ---
pt.assessed.pt.presents quiescent affect;calm,somnolent.per flacc pain mgx pt.absent facial/grimaces/body posturing.ng-tube assessed intact;patent.i have flushed the ng-tube return extant.colostomy intact;patent.iv access intact;patent iv fluids infusing. bsc inspected clean w/in access of the pt.pt.assessed for cleanliness.pt. repositioned.general statu stable.respiratory status stable;unlabored@room air.call light/telephone placed w/in access of the pt.
[2020-03-21] MEDS: D5/0.45 NS 1,000 ML IV SCH (22:37)
--- NOTE | 2020-03-22 | NUR ---
pt.assessed.v/s assessed values w/in normal limits.no c/o pain,nausea.ng-tube assessed intact;patent ng-tube flushed return extant. colostomy intact;patent.iv access intact;patent iv fluids infusing.pt.assessed for cleanliness.pt.repositioned.general status stable. respiratory status stable;unlabored.call light/telephone placed w/in access of the pt.
[2020-03-22 00:36] VITALS: BP_SYST 136
--- NOTE | 2020-03-22 02:00 | NUR ---
pt.assessed.pt.presents quiescent affect;calm,somnolent.per flacc pain mgx pt.absent facial grimaces/body posturing. ng-tube assessed intact;patent i have flushed the ng-tube return extant.iv access intact;patent iv fluids infusing. colostomy intact;patent.pt.assessed for cleanliness.pt.repositioned.general status stable.respiratory status stable; unlabored.call light/telephone placed w/in access of the pt
--- NOTE | 2020-03-22 04:00 | NUR ---
pt.assessed.pt.presents quiescent affect;calm,somnolent.per flacc pain mgx pt.absent facial grimaces/body posturing.ng-tube assessed. intact;patent.i have flushed the ng-tube.return extant.colostomy intact;patent.iv access intact;patent iv fluids infusing.pt.assessed for cleanliness.pt.repositioned.general status stable.respiratory status stable;unlabored.call light/telephone placed w/in access of the pt.
--- NOTE | 2020-03-22 06:30 | NUR ---
pt.assessed.pt.presents quiescent affect;calm,resting.i have reviewed the surgery papers w pt.i have witnessed the signiture of the covid acknowlegment/consent papers.ng-tube intact;patent ng-tube return extant.colostomy intact;patent iv access intact;patent iv fluids infusing.pt.assessed for cleanliness.pt.repositioned.no c/o pain,nausea.general status stable.respiratory status stable;unlabored.02-sat%=98%.call light/telephone placed w/in access of the pt.
--- NOTE | 2020-03-22 07:20 | NUR ---
opening note provided bedside sbar from night rn, patient in bed, respiraitons even non labored, bed in low and locked position, call light within reach
[2020-03-22 08:00] VITALS: BP_SYST 143
--- NOTE | 2020-03-22 08:00 | NUR ---
nurse note obtained patient vs, patient in bed, bed respirations even non labored, bed in low and locked position call light within reach, bed alarm on, patient denies any pain or discomfort
--- NOTE | 2020-03-22 08:45 | NUR ---
nurse note administered morning medications, respirations even non labored
[2020-03-22] MEDS: PANTOPRAZOLE SODIUM 40 MG/VIAL (PROTONIX) IVP SCH (08:47)
--- NOTE | 2020-03-22 10:30 | NUR ---
nurse note chg bath given, changed linens, patient denies any pain or discomfort
[2020-03-22] MEDS ORDERED: SUGAMMADEX SODIUM 200 MG/2 ML VIAL IV ONE (12:14)
[2020-03-22] MEDS ORDERED: DESFLURANE 15 MIN GAS INH ONE (12:14)
[2020-03-22] MEDS ORDERED: DEXAMETHASONE SOD PHOSPHATE 4 MG/ML VIAL IVP ONE (12:14)
[2020-03-22] MEDS ORDERED: NS IRRIG SOLN 1000 ML IR ONE (12:14)
[2020-03-22] MEDS ORDERED: CEFAZOLIN 1 GM IVPB PREMIX 50 ML IV ONE (12:14)
[2020-03-22] MEDS ORDERED: ROCURONIUM BROMIDE 10 MG/ML (ZEMURON) IV ONE (12:14)
[2020-03-22] MEDS ORDERED: BUPIVACAINE /PF 0.25% 30 ML VIAL INJ ONE (12:14)
[2020-03-22] MEDS ORDERED: MIDAZOLAM HCL 5 MG/5 ML VIAL IVP ONE (12:14)
[2020-03-22] MEDS ORDERED: LR 1,000 ML IV.SOLN IV ONE (12:14)
[2020-03-22] MEDS ORDERED: fentaNYL CITRATE 250 MCG/5 ML AMP IV ONE (12:14)
[2020-03-22] MEDS ORDERED: ONDANSETRON HCL 4 MG/2 ML VIAL IVP ONE (12:14)
[2020-03-22] MEDS ORDERED: PROPOFOL 200MG/ 20ML VIAL (DIPRIVAN) IV ONE (12:14)
[2020-03-22] MEDS ORDERED: METOPROLOL TARTRATE 5 MG/5 ML VIAL IVP ONE (12:14)
--- NOTE | 2020-03-22 12:15 | NUR ---
nurse note patient taken via gurney to or
[2020-03-22 12:43] VITALS: BP_SYST 162
[2020-03-22] MEDS: LR 1,000 ML IV SCH ×2 (13:45→23:45)
[2020-03-22] MEDS ORDERED: HYDROmorphone 1 MG INJ. 1 MG/ML AMPUL IVP PRN ×2 (13:45)
[2020-03-22] MEDS ORDERED: MEPERIDINE HCL/PF 25 MG/ML DISP.SYRIN IVP PRN (13:45)
[2020-03-22] MEDS ORDERED: MIDAZOLAM HCL 2 MG/2 ML VIAL (VERSED) IVP PRN (13:45)
[2020-03-22] MEDS ORDERED: ONDANSETRON HCL 4 MG/2 ML VIAL IVP PRN (13:45)
[2020-03-22] MEDS ORDERED: LABETALOL 100 MG/ 20ML VIAL IVP PRN (13:45)
[2020-03-22 14:46] VITALS: BP_SYST 162
[2020-03-22] MEDS ORDERED: HYDROmorphone 1 MG INJ. 1 MG/ML AMPUL ONE ×2 (15:03→16:03)
[2020-03-22] MEDS ORDERED: LABETALOL 100 MG/ 20ML VIAL ONE (16:00)
--- NOTE | 2020-03-22 16:25 | NUR ---
nurse note patient returned from OR, received report. respirations even non labored, bed in low and locked position, call light within reach, bed alarm on. obtained VS
--- NOTE | 2020-03-22 17:00 | NUR ---
nurse note patient in bed, respirations even, non labored, eyes closed, bed in low and locked position, call light within reach
--- NOTE | 2020-03-22 18:15 | NUR ---
nurse note patient in bed, respirations even non labored, bed in low and locked position, call light within reach, bed alarm on, patient denies any pain or discomfort
[2020-03-22 19:00] VITALS: BP_SYST 151
--- NOTE | 2020-03-22 19:15 | NUR ---
closing note provided bedside sbar to night RN, patient in bed, respirations even non labored, bed in low and locked position call light within reach, bed alam on, IVF's running as ordered, endorsed care to night RN
--- NOTE | 2020-03-22 19:15 | NUR ---
change of shift.pt.presents s/p surgery;03/22/20;ryley pace per .pt.presents original dsg surgery dsg intact.absent drainage.pt.presents j-pierre x1 location;rlq.intact;patent.pt.presents iv access intact;patent iv fluids infusing.[place] [facility] of the pt.call light/telephone w/in reach of the pt.
[2020-03-22 20:00] VITALS: BP_SYST 151
--- NOTE | 2020-03-22 20:00 | NUR ---
pt.assessed.vs assessed values win normal limits.no c/o pain,nausea.i have assessed the surgery dsg intact absent drainage.pt.assessed for cleanliness.pt.repositioned.iv access intact;patent iv fluids infusing.general status stable. respiratory status stable;unlabored.call light/telephone placed w/in access of the pt.
--- NOTE | 2020-03-22 22:00 | NUR ---
pt.assessed.pt.presents quiescent affect;calm,somnolent.per flacc pain mgx pt.absent facial grimaces/body posturing. j-pierre intact;patent blood content extant. i have attended to the j-pierre measured.iv access intact;patent iv fluids infusing.general status stable.respiratory status stable;unlabored.call light/telephone placed w/in access of the pt.
[2020-03-22] MEDS ORDERED: NALOXONE HCL 0.4 MG/ML AMP (NARCAN) IVP PRN ×2 (23:15)
[2020-03-22] MEDS: MORPHINE 2 MG/ML INJ. SYRINGE IVP PRN (23:25)
--- NOTE | 2020-03-22 23:30 | NUR ---
pt.requested medication pain.i have administered [id number] ivp.to assess the efficacy of the pain medication per pain mgx protocol. no additional requests posited@this hour.
--- NOTE | 2020-03-23 | NUR ---
pt.assessed.vs assessed values w/in normal limits.pt.assessed for cleanliness.pt.repositioned.iv access intact;patent iv fluid infusing.colostomy assessed intact;patent. i have attended to the j-pierre.measured.no requests posited@this hour.general status stable.respiratory status stable; unlabored.02-sat%=98%. call light/telephone placed w/in access of the pt.
[2020-03-23 00:10] VITALS: BP_SYST 125
--- NOTE | 2020-03-23 02:00 | NUR ---
pt.assessed.pt.presents quiescent affect;calm,somnolent.per flacc pain mgx pt.absent facial grimaces/body posturing. colostomy assessed intact; patent.iv access intact;patent iv fluids infusing.pt.assessed for cleanliness.pt.repositioned.general status stable;respiratory status stable;unlabored.call light/telephone placed w/in access of the pt.
--- NOTE | 2020-03-23 04:00 | NUR ---
pt.assessed.pt.assessed for cleanliness.pt.cleaned.pt.repositioned.i have attended to the j-pierre;measured.iv access intact;patent iv fluids infusing. colostomy intact;patent.general status stable.respiratory status stable;unlabored call light/telephone placed w/in access of the pt.
[2020-03-23] MEDS: D5/0.45 NS 1,000 ML IV SCH (04:57)
[2020-03-23] MEDS: MORPHINE 2 MG/ML INJ. SYRINGE IVP PRN ×2 (04:59→16:06)
--- NOTE | 2020-03-23 05:00 | NUR ---
pt.assessed.pt.requested medication.pain.i have administered morphine;2mg ivp.to assess the efficacy of the pain medication per pain mgx protocol.pt.stated she was hungery.pt's diet status;npo;s/p surgery;03/22/20. to apprise of the pt's status;christopher.
--- NOTE | 2020-03-23 06:12 | NUR ---
pt.assessed.pt.presents quiescent affect;calm,somnolent.per flacc pain mgx pt.absent facial grimaces/body posturing.iv access intact;patent iv fluids infusing.colostomy intact;patent.j-pierre intact;patent blood return w/in collection chamber.general status stable.respiratory status stable;unlabored.juliano light.telephone placed w/in reach of the pt.
--- NOTE | 2020-03-23 07:10 | NUR ---
opening note received bedside sbar from night RN, patient in bed, respirations even, non labored, bed in low and locked position call light within reach
--- NOTE | 2020-03-23 07:37 | NUR ---
MD ROUNDS DR MOREIRA BEDSIDE EXAMINING PATIENT, REMOVED DRESSING, NEW ORDERS RECEIVED
[2020-03-23 08:00] VITALS: BP_SYST 150
[2020-03-23] MEDS: PANTOPRAZOLE SODIUM 40 MG/VIAL (PROTONIX) IVP SCH (08:12)
--- NOTE | 2020-03-23 09:00 | NUR ---
NURSE NOTE PATIENT IN BED, RESPIRATIONS EVEN NON LABORED, BED IN LOW AND LOCKED POSITION CALL LIGHT WITHIN REACH, IVF'S RUNNING ORDERED, BALWINDER DRAIN CONTAINS PINK CLEAR, FLUID, OSTOMY BAG IS EMPTY, PATIENT DENIES ANY PAIN OR DISCOMFORT
--- NOTE | 2020-03-23 11:15 | NUR ---
NURSE NOTE PATIENT IN BED EYES CLOSED, BED IN LOW AND LOCKED POSITION, CALL LIGHT WITHIN REACH, RESPIRATIONS EVEN NON LABORED
[2020-03-23 12:06] VITALS: BP_SYST 155
--- NOTE | 2020-03-23 13:30 | NUR ---
NURSE NOTE EDUCATED PATIENT REGARDING THE USE OF INCENTIVE SPIROMETER, PATIENT VERBALIZED UNDERSTANDING AND WAS ABLE TO DEMONSTRATE CORRECTLY PROPER USE
--- NOTE | 2020-03-23 14:06 | NUR ---
Nutrition F/U RD reviewed pt's current EMR record including diet Hx, physician notes, nursing notes, pertinent labs/meds/procedures, care trends, and care activity. Admission Dx: Bowel Obstruction PMH: SBO, Hx of Colon Cancer Stage IV, Colostomy Status, HTN per MD notes. Current Diet Order/Nutrition Support: Clear liquid diet x 0 day Subjective Info: Pt seen in bed, POD#1 of exp lap. Clear liquid tray at bedside. Pt reported that she only had the hot water and some sips of broth. Ensure Clear untouched. Pt reported that she tolerated it so far and no c/o abd discomfort or any vomiting. Pt was advised to drink ONS to optimize PO intake while on clear liquid diet. Pt verbalized understanding and will abide. Pt also verbalized that she dislikes coffee w/ her tray. RD noted in [employer] and notified [facility] staff. Pt also had questions about diet once she gets discharged, RD provided answers. Pertinent Medications Protonix IV, MOM, Zofran Pertinent Labs 03/21 Na 136WNL, K 3.3L, BG 107H, BUN 13WNL, CRE 1.02WNL Skin Integrity Comment: Anthony scale: 20; no skin issues noted upon EMR review Current % PO Poor 38% average of 6 meals in 2 days Estimated Energy Expenditure (kcals/day) 0778-5113 Kcal/day (25-30 kcal/kg CBW for maintenance) Estimated Protein Required (g/day) 60gm/day (1.2 gm/kg CBW for Geriatric maintenance) Estimated Fluid Required (l/day) 1.3 L/day (25ml/kg CBW for Geriatric maintenance) Problem/Etiology/Signs/Symptoms Inadequate protein-energy intake r/t altered GI function AEB SBO and PO intake meeting <25% of est needs d/t NPO status x 3 days. *improving Expected Outcomes/Goals Monitor diet advancement, appetite and PO intake w/ goal of pt meeting more than 75% of estimated nutritional needs, labs trending WNL, normal GI function, skin integrity/wt maintenance. Dietitian Recommendations * Continuing Clear liquid diet * Recommend advance diet when medically appropriate. (Full liquid then GI Soft diet) * Encourage pt to increase PO. Follow Up High Risk: F/U in 2-3 days
--- NOTE | 2020-03-23 14:18 | NUR ---
Dietitian Recommendations * Continuing Clear liquid diet * Recommend advance diet when medically appropriate. (Full liquid then GI Soft diet) * Encourage pt to increase PO. Please see Nutrition F/U note for details. DEVANTE, RD
--- NOTE | 2020-03-23 15:00 | NUR ---
NURSE NOTE PATIENT IN BED, EYES CLOSED, BED IN LOW AND LOCKED POSITION, CALL LIGHT WITHIN REACH, SCD'S IN PLACE, IVF'S RUNNING ORDERED, RESPIRATIONS EVEN NON LABORED,
[2020-03-23 16:05] VITALS: BP_SYST 169
--- NOTE | 2020-03-23 16:15 | NUR ---
NURSE NOTE PATIENT COMPLAINING OF MILD PAIN TO ABDOMEN, REQUESTS MEDICATION. REPOSITIONED PATIENT, BED IN LOW AND LOCKED POSITION, CALL LIGHT WITHIN REACH
--- NOTE | 2020-03-23 16:45 | NUR ---
NURSE NOTE ASSISTED PATIENT WITH AMBULATION, DENIES ANY DIZZINESS, OR SHORTNESS OF BREATH, ABLE TO AMBULATE TO ROOM DOOR AND BACK, PATIENT DENIES ANY PAIN, RETURNED TO BED, IVF'S RUNNING ORDERED, CALL LIGHT WITHIN REACH
--- NOTE | 2020-03-23 19:15 | NUR ---
CLOSING NOTE PROVIDED BEDSIDE SBAR TO NIGHT RN, PATIENT IN BED, RESPIRATIONS EVEN, NON LABORED, BED IN LOW AND LOCKED POSITION CALL LIGHT WITHIN REACH, BALWINDER DRAIN EMPTIED, OSTOMY BAG EMPTY, IVF'S RUNNING ORDERED, ENDORSED CARE TO NIGHT RN
--- NOTE | 2020-03-23 19:20 | NUR ---
Report received from day shift nurse. Pt is fully awake, alert and oriented x4. Pt is on room air and no respiratory distress noted. No c/o pain or discomfort. Abdominal dressing is dry and intact with old blood stain noted in the upper area of the dressing. No signs of active bleeding noted. Right lower abdominal BALWINDER drain to bulb suction noted with pinkish fluid. LLQ colostomy bag is in place with scanty amount of liquid brownish stool. IVF of D5 1/2NS is infusing well in left hand at 50ml/hr without any signs of infiltration. Call light is with pt and bed is in the lowest/locked positions. Pt declined bed alarm. Pt was instructed to call for assistance as needed and pt verbalized understanding.
[2020-03-23 20:00] VITALS: BP_SYST 158
--- NOTE | 2020-03-23 20:00 | NUR ---
Pt was assisted to [facility] and pt voided yellowish urine. Pt was assisted back to bed and no c/o discomfort. Fall and safety precautions are in place. Addendum: 03/24/20 at 0258 by Nieves Bernard RN Pt refused use of IS. She stated it will cause infection. Pt was informed it will not cause infection, but prevent her lungs from collapsing. Pt then stated she will use it tomorrow.
--- NOTE | 2020-03-23 22:00 | NUR ---
Pt is resting quietly in bed. IVF is infusing well in left hand. No c/o pain or discomfort.
[2020-03-24] VITALS: BP_SYST 144
--- NOTE | 2020-03-24 | NUR ---
VSS. Abdominal dressing remains dry and intact with BALWINDER drain in place. IVF is infusing well in left hand. Fall and safety precautions are in place.
--- NOTE | 2020-03-24 02:00 | NUR ---
Pt is sleeping comfortably in bed. IVF is infusing well in . Fall and safety precautions are in place.
[2020-03-24] MEDS: D5/0.45 NS 1,000 ML IV SCH ×2 (02:05→23:17)
[2020-03-24 08:00] VITALS: BP_SYST 135
[2020-03-24] MEDS: PANTOPRAZOLE SODIUM 40 MG/VIAL (PROTONIX) IVP SCH (08:35)
[2020-03-24] MEDS ORDERED: MAGNESIUM CITRATE 300 ML ORAL SOLUTION PO ONE (09:30)
[2020-03-24] MEDS ORDERED: POLYETHYLENE GLYCOL 3350, 17 GM/ POWD.PACK PO ONE (09:30)
[2020-03-24 12:28] VITALS: BP_SYST 142
--- NOTE | 2020-03-24 13:31 | NUR ---
Case mgt: I s/w nurse Jennifer about ambulation and colostomy teaching she says pt gets up to BSC and is not new colostomy regarding teaching colostomy care--Jennifer will f/u for PT order as pt is obese and needs assistance to get OOB and to BSC- RN
--- NOTE | 2020-03-24 16:13 | NUR ---
Nutrition Update Anthony Scale 17 noted. Pt admitted for bowel obstruction Diet: clear liquid BMI: 22.2 kg/m2 RD to follow per nutrition care standards.
[2020-03-24 16:40] VITALS: BP_SYST 151
--- NOTE | 2020-03-24 17:42 | NUR ---
patient aaox3 all follow commands room air no sob non labored breathing colostomy bag small output observed stefan drain 50ml ouput noted pt denied chest pain any pain will continue monitor close observation
--- NOTE | 2020-03-24 19:25 | NUR ---
Pt was received lying in bed sleeping and easily arousable. No c/o pain or discomfort. IVF of D5 1/2NS is infusing well in left hand at 50ml/hr without any signs of infiltration. Fall and safety precautions are in place.
--- NOTE | 2020-03-24 21:30 | NUR ---
Pt is awake and resting quietly in bed. IVF is infusing well in left hand. No c/o pain or discomfort.
--- NOTE | 2020-03-24 23:20 | NUR ---
Colostomy bag changed after old bag was removed. Colostomy site was cleansed with moistened wash cloth and pat dried. Stoma pinkish. Old bag had 200ml liquid brownish stool.
[2020-03-25 00:51] VITALS: BP_SYST 154
--- NOTE | 2020-03-25 01:30 | NUR ---
Pt is resting without any distress noted. IVF is infusing well in left hand. Darnell nd safety precautions are in place.
--- NOTE | 2020-03-25 03:00 | NUR ---
Pt is sleeping comfortably in bed. IVF is infusing well in . Fall and safety precautions are in place.
--- NOTE | 2020-03-25 06:00 | NUR ---
Colostomy bag emptied. 400ml liquid brownish stool collected.
[2020-03-25 08:00] VITALS: BP_SYST 126
[2020-03-25] MEDS: POLYETHYLENE GLYCOL 3350, 17 GM/ POWD.PACK PO SCH (08:36)
[2020-03-25] MEDS: PANTOPRAZOLE SODIUM 40 MG/VIAL (PROTONIX) IVP SCH (08:36)
[2020-03-25 12:54] VITALS: BP_SYST 142
--- NOTE | 2020-03-25 14:10 | NUR ---
Discharge Planning: DCP faxed pt referral to [facility] and [facility] for DME FWW. DCP to follow up. Addendum: 03/25/20 at 1644 by Meli Richardson DP DCP followed up with [facility] [phone] will deliver FWW to home at night per Heide.
--- NOTE | 2020-03-25 14:30 | NUR ---
Discharge planning Spoke with pt @ bedside to discuss dc planning. [facility] will go back home with her Sister in law, Lady Marie, who will be able to assist her @ home. [facility] lives with sister in law & brother in law & has shower chair @ home. Informed PT recommended FWW if had fww, [facility] does not. Would like me to call & talk to sister in law Narayanan. Called & spoke with Lady, ph [phone], [facility] plan for pt to go back home with her. If FWW not covered by [employer] then she will buy one for pt. States that pt is from [facility] that came here January 2019 to visit & was supposed to go back to [facility] in Jul 2019, but had new diagnosis CA & had emergency surgery @ [facility] in June. [facility] then Covid came around & is now still here. Pt is going to stay here for now is still undergoing chemo treatment outpt. Called & spoke with Dr Wolff, gave phone order for FWW.
[2020-03-25 15:50] VITALS: BP_SYST 138
[2020-03-25 16:28] VITALS: BP_SYST 138
--- NOTE | 2020-03-25 19:10 | NUR ---
CHANGE OF SHIFT; pt. awake when received, resting. no distress. no complaints. call light within reach. on fall risk precaution.
[2020-03-25 19:45] VITALS: BP_SYST 148
[2020-03-25] MEDS: D5/0.45 NS 1,000 ML IV SCH ×2 (19:55→22:26)
--- NOTE | 2020-03-25 19:55 | NUR ---
NOTES: IV bag changed, rate @ 120 cc/hr via left hand. awake, alert and oriented. S/P Explor lap/ lysis of adhesion/small bowel resection with anastomosis. old left side abdomen colostomy with light greenish loose drainage, j pierre x1 with serous sanguineous drain. abdominal dressing intact. started on full liquid, had small amts, some discomfort whenever she takes in fluid. moves all extremities but weak to ambulate, using bedside commode. call light within reach. VS checked.
--- NOTE | 2020-03-25 21:00 | NUR ---
NOTES: pt. resting, no complaints manifested. repositioned self for comfort. encouraged on deep breathing.
--- NOTE | 2020-03-25 23:16 | NUR ---
NOTES: pt. checked and made rounds, sleeping. IVF continuous.
--- NOTE | 2020-03-25 23:16 | NUR ---
NOTES: pt. checked and sleeping. no distress.
--- NOTE | 2020-03-26 00:20 | NUR ---
NOTES: pt. remain sleeping. condition observed. IVF continuous. call light at bedside.
--- NOTE | 2020-03-26 02:31 | NUR ---
NOTES: condition unchanged. remain asleep.
--- NOTE | 2020-03-26 04:00 | NUR ---
NOTES: condition unchanged, continue to monitor..
[2020-03-26 05:00] VITALS: BP_SYST 148
--- NOTE | 2020-03-26 05:00 | NUR ---
NOTES: pt. awakened, BALWINDRE derained 100 cc serous. colostomy ba drained 120 cc loose brownish stool. abdominal incision intact with francis, slight leak on mid incision, clelean and ABD pad dressing applied. no repositionedted some abdominal pain. used bedside commode to void. repositioned.
[2020-03-26] MEDS: MORPHINE 2 MG/ML INJ. SYRINGE IVP PRN (05:26)
--- NOTE | 2020-03-26 05:26 | NUR ---
NOTES: pt. medicated fro c/o post op abdominal pain 10/25, Morphine 1 mg IVP given as ordered. deep breathing instructed, on room air.
[2020-03-26 07:31] LABS: BASOPHILS % (AUTO) 0.3 % (0.0-2.0); EOSINOPHILS # (AUTO) 0.2 K/uL (0.0-0.4); EOSINOPHILS % (AUTO) 3.3 % (0.0-4.0); HEMATOCRIT 30.2 % (36-48); HEMOGLOBIN 9.7 g/dL (12.0-16.0); LYMPHOCYTES # (AUTO) 0.3 K/uL (1.0-5.5); MEAN CORPUSCULAR HEMOGLOBIN 26 pg (27-31); MEAN CORPUSCULAR HGB CONC 32 % (32-36); MEAN CORPUSCULAR VOLUME 80 fL (79.0-98.0); MONOCYTES # (AUTO) 0.9 K/uL (0.0-1.0); MONOCYTES % (AUTO) 12.9 % (1.7-9.3); NEUTROPHILS # (AUTO) 5.5 K/uL (1.8-7.7); NEUTROPHILS % (AUTO) 79.5 % (40.0-70.0); PLATELET COUNT (AUTO) 216 K/uL (130-430); RED CELL DISTRIBUTION WIDTH 16.2 % (9.0-15.0); WHITE BLOOD COUNT (AUTO) 6.9 K/uL (4.8-10.8)
[2020-03-26 07:46] LABS: ANION GAP 4 (5-15); CALCIUM 8.2 mg/dL (8.4-11.0); CHLORIDE 103 mmol/L (98-107); CREATININE 0.75 mg/dL (0.55-1.30); GLUCOSE 122 mg/dL (70-99); POTASSIUM 3.4 mmol/L (3.5-5.1); SODIUM SERUM 138 mmol/L (136-145); UREA NITROGEN, BLOOD 10 mg/dL (8-21)
[2020-03-26 08:00] VITALS: BP_SYST 132
[2020-03-26] MEDS: PANTOPRAZOLE SODIUM 40 MG/VIAL (PROTONIX) IVP SCH (09:55)
[2020-03-26] MEDS: POLYETHYLENE GLYCOL 3350, 17 GM/ POWD.PACK PO SCH (09:55)
--- NOTE | 2020-03-26 10:28 | NUR ---
Patient is in bed resting. Patient is alert and oriented x3-4. Patient denies pain, distress, and shortness of breath. 40mL drained from BALWINDER drain this morning. Stoma clean and pink. Colostomy bag empty and sealed tight. AM care needs met. Homeostasis maintained at patients baseline. Bed in low position. Call light in reach. Will continue to monitor patient throughout shift.
[2020-03-26 12:50] VITALS: BP_SYST 130
[2020-03-26 16:26] VITALS: BP_SYST 126
--- NOTE | 2020-03-26 17:11 | NUR ---
Nutrition F/U RD reviewed pt's current EMR record including diet Hx, physician notes, nursing notes, pertinent labs/meds/procedures, care trends, and care activity. Admission Dx: Bowel Obstruction PMH: SBO, Hx of Colon Cancer Stage IV, Colostomy Status, HTN per MD notes. SARS-CoV-2 Ag (Rapid) Negative 03/12, 03/22 Current Diet Order/Nutrition Support: Regular (to start tonight at dinner, 03/26) Subjective Info: Pt seen POD 4 s/p exp lap 03/22. Pt reported that she had been tolerating full liquid diet well, enjoys Ensure Enlive (vanilla), and small portions of soup, pudding, and tea. Pt has been having good stool output via colostomy: 120 ml output per EMR. RD inquired about food preferences upon diet advancement -- pt interested in pancakes and syrup when offered. RD left note for [facility] staff of pt's food preference. RD encouraged pt to continue to gradually increase PO intakes for adequate nutrition. ONS continues appropriate. Pertinent Labs/Meds: Reviewed Skin Integrity Comment: Anthony scale: 16; no skin issues noted upon EMR review Current % PO Fair per pt report Estimated Energy Expenditure (kcals/day) 3391-8819 Kcal/day (25-30 kcal/kg CBW for maintenance) Estimated Protein Required (g/day) 60gm/day (1.2 gm/kg CBW for Geriatric maintenance) Estimated Fluid Required (l/day) 1.3 L/day (25ml/kg CBW for Geriatric maintenance) Problem/Etiology/Signs/Symptoms Inadequate protein-energy intake r/t altered GI function AEB SBO and PO intake meeting <25% of est needs d/t NPO status x 3 days. *improving Expected Outcomes/Goals Monitor diet advancement, appetite and PO intake w/ goal of pt meeting more than 75% of estimated nutritional needs, labs trending WNL, normal GI function, skin integrity/wt maintenance. Dietitian Recommendations * Recommend regular diet w/ Ensure Enlive TID (ONS provides 1050 kcal/day, 60 gm protein/day) Follow Up Moderate Risk: F/U in 3-5 days Addendum: 03/26/20 at [address] CORRECTION: * Recommend soft (low fiber/bland) diet w/ Ensure Percy [place]
--- NOTE | 2020-03-26 17:17 | NUR ---
Dietitian Recommendations * Recommend regular diet w/ Ensure Enlive TID (ONS provides 1050 kcal/day, 60 gm protein/day) LORA RD Please refer to Nutrition F/U for details. Addendum: 03/26/20 at [address] CORRECTION: * Recommend soft (low fiber/bland) diet w/ Ensure Enlive TID
--- NOTE | 2020-03-26 18:25 | NUR ---
Patient is in bed resting. Patient is alert and oriented x3-4. Patient denies pain, distress, and shortness of breath. 120mL drained from BALWINDER drain during entire shift. Stoma clean and pink. Colostomy bag empty and sealed tight. All care needs met. Homeostasis maintained at patients baseline. Bed in low position. Call light in reach. Will give report to night nurse.
[2020-03-26 19:30] VITALS: BP_SYST 152
--- NOTE | 2020-03-26 19:30 | NUR ---
INITIAL NOTES PATIENT IS STABLE AND LAYING IN BED. NO S/S OF RESPIRATORY DISTRESS NOTED. CALL LIGHT IN REACH. PATIENT SUCCESSFULLY DEMONSTRATES USGAE OF CALL LIGHT. BED IS LOCKED, ALARMED, AND AT THE LOWEST POSITION. FALL, SAFETY, ASPIRATION, AND RESPIRATORY PRECAUTIONS WILL BE IN PLACE THROUGHOUT THE SHIFT. PLAN OF CARE IS DISCUSSED WITH PATIENT.
[2020-03-26] MEDS: D5/0.45 NS 1,000 ML IV SCH (19:49)
--- NOTE | 2020-03-26 21:30 | NUR ---
PATIENT IS STABLE AND WATCHING TV. NO S/S OF RESPIRATORY DISTRESS NOTED. CALL LIGHT IN REACH.
--- NOTE | 2020-03-26 23:30 | NUR ---
PATIENT IS STABLE AND SLEEPING IN BED. NO S/S OF RESPIRATORY DISTRESS NOTED. CALL LIGHT IN REACH.
--- NOTE | 2020-03-27 01:30 | NUR ---
PATIENT IS RESTING AND STABLE IN BED. NO S/S OF RESPIRATORY DISTRESS NOTED. CALL LIGHT IN REACH.
[2020-03-27 01:36] VITALS: BP_SYST 145
--- NOTE | 2020-03-27 03:33 | NUR ---
PATIENT IS STABLE AND SLEEPING IN BED. NO S/S OF RESPIRATORY DISTRESS NOTED. CALL LIGHT IN REACH.
--- NOTE | 2020-03-27 05:31 | NUR ---
PATIENT IS SLEEPING AND STABLE IN BED. NO S/S OF RESPIRATORY DISTRESS NOTED. CALL LIGHT IN REACH.
--- NOTE | 2020-03-27 06:22 | NUR ---
CLOSING NOTES PATIENT IS STABLE AND LAYING IN BED. NO S/S OF RESPIRATORY DISTRESS NOTED. CALL LIGHT IN REACH. BED IS LOCKED AND AT THE LOWEST POSITION. FALL, SAFETY, ASPIRATION, AND RESPIRATORY PRECAUTIONS HAS BEEN IN PLACE THROUGHOUT THE SHIFT. WILL CONTINUE TO MONITOR UNTIL SBAR REPORT IS ENDORSED TO AM NURSE BY BEDSIDE.
[2020-03-27 08:00] VITALS: BP_SYST 152
--- NOTE | 2020-03-27 08:00 | NUR ---
Opening Notes Patient is awake, alert and oriented x4. No resp distress noted. Breathing is even and unlabored. Patient reports relief of pain from pain med given earlier in shift. IV site on left hand, 20 gauge intact at this time, flushing well. Patient reports some discomfort at IV site, will attempt another IV site later in shift. D5 1/2 NS @ 50 cc/hr, infusing well. Patient denies any NVD and abnormal bleeding. Pt reports intermittent cough, no phelgm. BSC at bedside, emptied out 300 cc of dark yellow urine, foul smell. All needs met at this time. Safety and fall precautions in place. Bed in lowest position, locked. Will continue to monitor.
[2020-03-27] MEDS: PANTOPRAZOLE SODIUM 40 MG/VIAL (PROTONIX) IVP SCH (09:19)
[2020-03-27] MEDS: POLYETHYLENE GLYCOL 3350, 17 GM/ POWD.PACK PO SCH (09:19)
--- NOTE | 2020-03-27 10:15 | NUR ---
Case mgt: Pt confirmed with me that her FWW was delivered to her home last night. JESUS ESTRADA
--- NOTE | 2020-03-27 10:25 | NUR ---
Notes Patient is laying in bed, resting at this time. No resp distress noted. Breathing is even and unlabored. Denies any pain. Will continue to monitor.
[2020-03-27 11:57] VITALS: BP_SYST 148
--- NOTE | 2020-03-27 12:00 | NUR ---
Notes/Wound Care (Incision site) Patient is awake, alert and oriented x4. No resp distress noted. Performed wound care on abdominal incision. Some redness noted on incision site, no drainage, no odor. Cleanse with NS, pat dry, apply abdominal pad, apply tape. Pt tolerated dressing change well. Will continue to monitor.
[2020-03-27 12:06] VITALS: BP_SYST 148
--- NOTE | 2020-03-27 14:00 | NUR ---
Notes Patient is laying in bed, sleeping. No resp distress or pain noted. Will continue to monitor.
--- NOTE | 2020-03-27 16:00 | NUR ---
BALWINDER DRAIN Removed Removed patients BALWINDER DRAIN on right lower abdomen. As removing, met some resistance. Asked charge nurse for assistance. Able to remove BALWINDER drain, patient tolerated removal well. No signs of bleeding or discharge. Cleansed site with NS, pat dry, applied gauze over incision site. Patient denies any pain at this time. Will continue to monitor.
[2020-03-27 16:10] VITALS: BP_SYST 149
--- NOTE | 2020-03-31 15:35 | NUR ---
SS NOTES/DISCHARGE FOLLOW UP CALL: [facility] MANAGER phoned pt @ [phone] and spoke with dtr-in-law instead. Pt is "doing well except for her wound which has not totally healed". Per dtr, pt had a follow up appt with Dr. Wolff yesterday and everything went well. Dtr requested for [facility] resource number for application. No other question/concern about pt's discharge instructions. No further SS call needed.
== END 2020-03-27 16:25 | disposition home or self-care (01) | DRG 230 ==
LOC: SED 09:55 → STU 14:26 → SMU 03-18 17:19
PROVIDERS: ADMIT Internal Medicine; ATTEND Internal Medicine
PROC: 0DB80ZZ Excision of Small Intestine, Open Approach (ICD-10-PCS; 2020-03-22)
PROC: 0D1B0ZH Bypass Ileum to Cecum, Open Approach (ICD-10-PCS; 2020-03-22)
PROC: 0DN80ZZ Release Small Intestine, Open Approach (ICD-10-PCS; principal; 2020-03-22 19:00)
DX: K56.609 Unspecified intestinal obstruction, unspecified as to partial versus complete obstruction (principal); K43.5 Parastomal hernia without obstruction or gangrene; C18.9 Malignant neoplasm of colon, unspecified; I10 Essential (primary) hypertension; K43.9 Ventral hernia without obstruction or gangrene; K57.90 Diverticulosis of intestine, part unspecified, without perforation or abscess without bleeding; Z20.828 Contact with and (suspected) exposure to other viral communicable diseases; K80.20 Calculus of gallbladder without cholecystitis without obstruction; Z85.038 Personal history of other malignant neoplasm of large intestine; Z93.3 Colostomy status; Z92.3 Personal history of irradiation; Z92.21 Personal history of antineoplastic chemotherapy
CPT/HCPCS: 36415; 71045; 74018; 74021; 74250-TC; 80048; 80053; 81003; 83605; 83735-TC; 84100-TC; 84484; 85025; 85610-TC; 85730-TC; 87040-TC; 87081; 87086; 88305; 88309; 93005; 96361; 96365; 96366; 96375; 97110-GP; 97116-GP; 97163; 97530-GP; 99285; A4371; A5061; C9113; C9399; G0378; J0690; J1100; J1170; J2250; J2270; J2405; J2704; J3010; J3480; J3490; J7030; J7050; J7120; Q9963